=== PATIENT | male | born 1945 | race Caucasian/White ===

== ENCOUNTER 2018-06-21 19:53 | Emergency (ER) | payer OTHER ==
[~2018-06-21] VITALS: Ht 177.8 cm; Wt 117.9 kg
[~2018-06-21 19:53] MED LIST: ASPI81CH PO; ATOR20 PO; DIGO.25 PO; Hair, Skin & N1 EACH PO; LISI20 PO; MELA3 PO; METF500 PO; OMEP20ER PO; TAMS.4ER PO; WARF7.5 PO
[2018-06-21 20:32] LABS: BASOPHILS ABSOLUTE AUTO 0.11 K/mm3 (0.00-0.23); BASOPHILS PERCENT AUTO 1 % (0-2); EOSINOPHILS ABSOLUTE AUTO 0.02 K/mm3 (0.00-0.68); EOSINOPHILS PERCENT AUTO 0 % (0-6); Hematocrit 46.6 % (37.0-53.0); Hemoglobin 15.4 g/dL (13.5-17.5); IMMATURE GRAN ABSOLUTE AUTO 0.03 K/mm3 (0.00-0.10); IMMATURE GRAN PERCENT AUTO 0 % (0-1); LYMPHOCYTES ABSOLUTE AUTO 0.82 K/mm3 (0.84-5.20); LYMPHOCYTES PERCENT AUTO 9 % (21-46); MONOCYTES ABSOLUTE AUTO 0.93 K/mm3 (0.16-1.47); MONOCYTES PERCENT AUTO 11 % (4-13); Mean Corpuscular HGB 29.3 pg (26.0-34.0); Mean Corpuscular Volume 89 fL (80-100); Mean Platelet Volume 9.8 fL (9.1-12.4); NEUTROPHILS ABSOLUTE AUTO 6.82 K/mm3 (1.96-9.15); NEUTROPHILS PERCENT AUTO 78 % (41-73); Platelet Count 249 K/mm3 (150-400); RDW Standard Deviation 42.1 fL (35.1-46.3); Red Blood Cell Count 5.26 M/mm3 (4.30-5.90); White Blood Cell Count 8.73 K/mm3 (4.00-11.30)
[2018-06-21 20:57] LABS: Alanine Aminotransfer (ALT/SGP 38 U/L (12-78); Albumin, Blood 3.8 g/dL (3.4-5.0); Alk Phos 98 U/L (50-136); Anion Gap 6 mmol/L (6-16); Aspartate Aminotrans (AST/SGOT 22 U/L (12-37); Bilirubin, Total 0.4 mg/dL (0.1-1.0); Blood Urea Nitrogen 23 mg/dL (8-24); Bun/Creatinine Ratio 19.2 (12.0-20.0); CO2, Blood 24 mmol/L (21-32); Calcium, Blood 8.6 mg/dL (8.5-10.1); Chloride, Blood 104 mmol/L (98-108); Globulin, Blood 3.7 g/dL (2.2-4.0); Glomerular Filtration Rate >60 (60-); Glucose, Blood 199 mg/dL (70-99); Potassium, Blood 4.8 mmol/L (3.5-5.5); Sodium, Blood 134 mmol/L (136-145); Total Protein, Blood 7.5 g/dL (6.4-8.2)
[2018-06-21 21:13] LABS: Influenza A Positive (NEGATIVE); Influenza B Negative (NEGATIVE)
[2018-06-21 21:20] LABS: Digoxin (Lanoxin) 1.46 ug/mL (0.80-2.00)
[2018-06-21] MEDS ORDERED: Micro-K10 MEQ (21:26)
[2018-06-21] MEDS ORDERED: FURO20 PO (21:26)
[2018-06-21] MEDS ORDERED: STIOLTO RESPIMAT4 GM IH (21:26)
[2018-06-21] MEDS ORDERED: GLIM4 PO (21:26)
[2018-06-21 21:31] LABS: International Normalized Ratio 2.32; Prothrombin Time Results 22.8 Sec (9.7-11.5)
[2018-06-21] MEDS ORDERED: BENZ100A PO (23:10)
[2018-06-21] MEDS ORDERED: ONDA4ODT MM (23:10)
[2018-06-21 23:42] LABS: Source, Urine Clean Catch
[2018-06-21 23:46] LABS: Blood, Urine 4+ (Neg); Glucose Qualitative, Urine Neg (Neg); Ketones, Urine 1+ (Neg); Leukocyte Esterase, Urine 1+ (Neg); Nitrite, Urine Neg (Neg); Protein, Urine 2+ (Neg); Specific Gravity, Urine 1.025 (1.003-1.022); Urobilinogen, Urine 1+ (Normal)
[2018-06-21 23:51] LABS: Appearance, Urine Hazy (Clear); Bilirubin, Urine 1+ (Neg); Color, Urine Amber (P-Yellow)
[2018-06-21 23:54] LABS: Amorphous Light (0-Heavy); Bacteria Few /hpf; Granular Casts 0-2 /lpf (0); Mucus Mod (0-Heavy); Squamous Epithelial Cells Not Seen /hpf (Few); White Blood Cells, Urine 0-2 /hpf (0-5)
== END 2018-06-22 00:08 | disposition home or self-care (01) ==
LOC: ER 19:53
PROVIDERS: Emergency Medicine; Physician Assistant
DX: J10.1 Influenza due to other identified influenza virus with other respiratory manifestations (principal); J44.9 Chronic obstructive pulmonary disease, unspecified; Z91.040 Latex allergy status; Z79.899 Other long term (current) drug therapy; Z79.84 Long term (current) use of oral hypoglycemic drugs; Z79.01 Long term (current) use of anticoagulants; Z79.82 Long term (current) use of aspirin; F17.200 Nicotine dependence, unspecified, uncomplicated
CPT/HCPCS: 36415; 71046; 80053; 80162; 81001; 83605; 85025; 85610; 87086; 87804; 93005; 93010; 94640; 96374; 99284-25; J1885; J7030

== ENCOUNTER 2022-04-04 13:42 | Inpatient (IN) | payer OTHER ==
[~2022-04-04] VITALS: Ht 177.8 cm; Wt 136.2 kg
[~2022-04-04 13:42] MED LIST changes: +BENZ100A PO; +FURO20 PO; +GLIM4 PO; +LOKELMA10 GM PO; +MIRALAX17 GM PO; +Micro-K10 MEQ; +ONDA4ODT MM; +PANT40 PO; +STIOLTO RESPIMAT4 G1 INH
[2022-04-04 14:43] LABS: BASOPHILS ABSOLUTE AUTO 0.06 K/mm3 (0.00-0.23); BASOPHILS PERCENT AUTO 1 % (0-2); EOSINOPHILS ABSOLUTE AUTO 0.09 K/mm3 (0.00-0.68); EOSINOPHILS PERCENT AUTO 1 % (0-6); Hematocrit 24.1 % (37.0-53.0); Hemoglobin 6.9 g/dL (13.5-17.5); IMMATURE GRAN ABSOLUTE AUTO 0.02 K/mm3 (0.00-0.10); IMMATURE GRAN PERCENT AUTO 0 % (0-1); LYMPHOCYTES ABSOLUTE AUTO 1.03 K/mm3 (0.84-5.20); LYMPHOCYTES PERCENT AUTO 13 % (21-46); MONOCYTES ABSOLUTE AUTO 0.62 K/mm3 (0.16-1.47); MONOCYTES PERCENT AUTO 8 % (4-13); Mean Corpuscular HGB 23.1 pg (26.0-34.0); Mean Corpuscular HGB Conc 28.6 g/dL (31.5-36.5); Mean Corpuscular Volume 81 fL (80-100); NEUTROPHILS ABSOLUTE AUTO 6.01 K/mm3 (1.96-9.15); NEUTROPHILS PERCENT AUTO 77 % (41-73); Platelet Count 349 K/mm3 (150-400); RDW Coefficient Variation 14.9 % (11.7-14.2); RDW Standard Deviation 44.4 fL (35.1-46.3); Red Blood Cell Count 2.99 M/mm3 (4.30-5.90); White Blood Cell Count 7.83 K/mm3 (4.00-11.30)
[2022-04-04 14:57] LABS: Albumin, Blood 3.2 g/dL (3.4-5.0); Albumin/Globulin Ratio 0.9 (0.8-1.8); Bilirubin, Total 0.6 mg/dL (0.1-1.0); Bun/Creatinine Ratio 18.9 (12.0-20.0); Calcium, Blood 8.5 mg/dL (8.5-10.1); Creatinine, Blood 1.11 mg/dL (0.60-1.20); Globulin, Blood 3.5 g/dL (2.2-4.0); Potassium, Blood 4.2 mmol/L (3.5-5.5); Total Protein, Blood 6.7 g/dL (6.4-8.2)
--- NOTE | 2022-04-04 22:43 | NUR ---
PATIENT ARRIVED TO FLOOR FROM ED @2106. TRANSFERRED TO BED USING SLIDE SHEET. VSS. RR EVEN AND UNLABORED AT REST ON 2L NC, WHICH PATIENT REPORTS BASELINE. NO TELE ORDERS AT THIS TIME. ADMITTING DIAGNOSIS OF UPPER GI BLEED. CHEIF COMPLAINTS OF SOB AND WEAKNESS. PATIENT RECIEVED ONE UNIT OF PRB IN THE ED AND THEN WAS TRANSFERRED TO MEDICAL FLOOR WITH THE SECOND UNIT ON ICE. BLOOD BANK CONTACTED AND UNIT WAS FOUND TO BE . THE BLOOD WAS RETURNED BY KENDRA ELKINS. DR. ACEVEDO WAS NOTIFED OF THE SITUATION BY THIS RN. A FOLLOW-UP H&H WAS ORDERED. SECOND UNIT OF PRB HELD AT THIS TIME. PATIENT DENIES SYMPTOMS AT THIS TIME. NO ACUTE SIGNS OR EVENTS. BED LOW AND LOCKED. CALL LIGHT IN REACH. PATIENT INSTRUCTED TO CALL FOR ASSISTANCE. THIS RN WILL CONTINUE TO CLOSELY MONITOR.
[2022-04-04 23:12] LABS: Hemoglobin 7.5 g/dL (13.5-17.5)
--- NOTE | 2022-04-04 23:49 | NUR ---
H&H THIS RN SPOKE WITH DR. ACEVEDO REGARDING PATIENT'S H&H RESULTS. NO NEW ORDERS AT THIS TIME. WILL CONTINUE TO CLOSELY MONITOR.
--- NOTE | 2022-04-05 01:32 | NUR ---
PATIENT FOUND NAKED AND SITTING ON THE EDGE OF HIS BED. IV WAS DISCOVERED ON THE FLOOR NEXT TO HIM. PATIENT REPORTS WAKING UP IN A PANIC AND WAS APOLOGETIC. THERAPEUTIC COMMUNICATION PROVIDED. PATIENT APPEARS CALM THIS RN AND BACK ROLL LATHE OPERATOR, MADISON, ASSISTED HIM. THIS RN PLACED A 20 GAUGE IV TO THE RIGHT FOREARM. PATIENT TOLERATED IV PLACEMENT WELL. NO ACUTE CONCERNS. PATIENT IS CALM, COOPERATIVE, AND REPORTS FEELING BETTER. THIS RN WILL CONTINUE TO MONITOR.
--- NOTE | 2022-04-05 03:44 | NUR ---
DEVIL DOG SUMMARY A&OX4. PATIENT EFFECITVELY COMMUNICATES NEEDS. VSS. SPO2 >92% ON 2L NC, WHICH IS PATIENT'S REPORTED BASELINE. CARRILLO DRAINING TO GRAVITY. PATIENT PASSED LARGE BOWEL MOVEMENT THIS SHIFT. SEE OTHER NOTES FOR DETAILS REGARDING BLOOD TRANSFUSION. NO ACUTE EVENTS THIS SHIFT OTHER THAN AN EPISODE OF ANXIETY FOR WHICH PATIENT WAS APOLOGETIC. BED LOW AND LOCKED. CALL LIGHT WITHIN REACH. THIS RN WILL CONTINUE TO MONITOR. NPO MAINTAINED
[2022-04-05 05:50] LABS: BASOPHILS ABSOLUTE AUTO 0.01 K/mm3 (0.00-0.23); BASOPHILS PERCENT AUTO 0 % (0-2); EOSINOPHILS PERCENT AUTO 0 % (0-6); Hematocrit 23.7 % (37.0-53.0); Hemoglobin 7.1 g/dL (13.5-17.5); IMMATURE GRAN ABSOLUTE AUTO 0.03 K/mm3 (0.00-0.10); IMMATURE GRAN PERCENT AUTO 0 % (0-1); LYMPHOCYTES ABSOLUTE AUTO 0.43 K/mm3 (0.84-5.20); LYMPHOCYTES PERCENT AUTO 6 % (21-46); MONOCYTES PERCENT AUTO 1 % (4-13); Mean Corpuscular Volume 80 fL (80-100); Mean Platelet Volume 8.7 fL (9.1-12.4); NEUTROPHILS ABSOLUTE AUTO 6.87 K/mm3 (1.96-9.15); NEUTROPHILS PERCENT AUTO 92 % (41-73); NRBC ABSOLUTE 0.04 K/mm3 (0.00-0.02); NRBC Auto 0.5 /100 WBC (0.0-0.2); Platelet Count 292 K/mm3 (150-400); RDW Coefficient Variation 15.2 % (11.7-14.2); RDW Standard Deviation 44.9 fL (35.1-46.3); Red Blood Cell Count 2.96 M/mm3 (4.30-5.90); White Blood Cell Count 7.44 K/mm3 (4.00-11.30)
[2022-04-05 10:37] LABS: Albumin, Blood 3.1 g/dL (3.4-5.0); Albumin/Globulin Ratio 0.9 (0.8-1.8); Bilirubin, Total 0.8 mg/dL (0.1-1.0); Bun/Creatinine Ratio 20.7 (12.0-20.0); Creatinine, Blood 1.16 mg/dL (0.60-1.20); Globulin, Blood 3.6 g/dL (2.2-4.0); Magnesium, Blood 2.1 mg/dL (1.6-2.4); Phosphorus, Blood 4.4 mg/dL (2.5-4.9); Potassium, Blood 4.4 mmol/L (3.5-5.5); Total Protein, Blood 6.7 g/dL (6.4-8.2)
--- NOTE | 2022-04-05 16:45 | NUR ---
PATIENT LEFT THE ROOM AT THIS TIME TRANSPORTED VIA GURNEY TO DAY SURGERY BY MICHAEL GRAF.
--- NOTE | 2022-04-05 17:43 | NUR ---
04/05/22 [address] Basurto; see anesthesia records.
--- NOTE | 2022-04-05 18:01 | NUR ---
SHIFT SUMMARY: PATIENT A&OX4. SLIGHTLY RAMONA. PLEASANT AND COOPERATIVE c CARE. DENIES CP/CHEST DISCOMFORT. AT BEGINNING OF SHIFT PATIENT WAS ON O2 2L VIA NC c SPO2 OF 97%. AROUND 0900 O2 WAS TITRATED TO 1L VIA NC C SPO2 RANGES 93-96% T/O SHIFT. PATIENT RECEIVED 1 UNIT OF PRBC THIS SHIFT. VITAL SIGNS REVIEWED. PATIENT LEFT THE ROOM AT 1645 TO DAY SURGERY FOR EGD.
--- NOTE | 2022-04-05 19:13 | NUR ---
PATIENT BACK IN ROOM AT AROUND 1845 FROM EGD PROCEDURE. RECEIVED BEDSIDE REPORT FROM MICHAEL GRAF REGARDING THE PROCEDURE. POST-OP VITALS TAKEN. IV TO R FOREARM INFUSING NS AT 100 MLS/HR. REPORT GIVEN TO HITESH RICCI RN.
--- NOTE | 2022-04-06 03:25 | NUR ---
HAIR ASSISTANT SUMMARY VSS. SOME ORAL/THROAT DRYNESS AFTER RETUENING TO FLOOR FROM PM PROCEDURE, ORAL FLUIDS INTAKE ASSESSED, PASSED TEST. THEN VOICED IRRITATING "DRY COUGH". NOTIFIED AND TONO CARLISLE ORDERED/GIVEN. TIM EFFECTIVE. PT VOICED "THEY DIDNT FIND ANY THING" REFERRING TO PROCEDURE. DISCUSSED NEXT PROCEDURE - TO BE DONE LATER TODAY. NO REPORTED HEMOPTYSIS OR TARRY STOOLS OF THIS WRITING. REMAINS ON CLEAR LIQUIDS, WILL BE NPO LATER PRIOR TO PROCEDURE. HAS BEEN RESTING QUIETLY WITH FEW INTERRUPTIONS SINCE HS. CALL LIGHT IN REACH. RAILS UP X 3. WILL CONTINUE TO MONITOR
[2022-04-06 05:45] LABS: BASOPHILS ABSOLUTE AUTO 0.02 K/mm3 (0.00-0.23); BASOPHILS PERCENT AUTO 0 % (0-2); EOSINOPHILS ABSOLUTE AUTO 0.01 K/mm3 (0.00-0.68); EOSINOPHILS PERCENT AUTO 0 % (0-6); Hemoglobin 7.9 g/dL (13.5-17.5); IMMATURE GRAN ABSOLUTE AUTO 0.04 K/mm3 (0.00-0.10); IMMATURE GRAN PERCENT AUTO 1 % (0-1); LYMPHOCYTES ABSOLUTE AUTO 1.22 K/mm3 (0.84-5.20); LYMPHOCYTES PERCENT AUTO 14 % (21-46); MONOCYTES ABSOLUTE AUTO 0.74 K/mm3 (0.16-1.47); MONOCYTES PERCENT AUTO 8 % (4-13); Mean Corpuscular HGB 23.9 pg (26.0-34.0); Mean Corpuscular HGB Conc 29.3 g/dL (31.5-36.5); Mean Corpuscular Volume 82 fL (80-100); Mean Platelet Volume 8.9 fL (9.1-12.4); NEUTROPHILS ABSOLUTE AUTO 6.77 K/mm3 (1.96-9.15); NEUTROPHILS PERCENT AUTO 77 % (41-73); NRBC ABSOLUTE 0.04 K/mm3 (0.00-0.02); NRBC Auto 0.5 /100 WBC (0.0-0.2); Platelet Count 338 K/mm3 (150-400); RDW Coefficient Variation 15.7 % (11.7-14.2)
[2022-04-06 06:19] LABS: Albumin, Blood 3.2 g/dL (3.4-5.0); Anion Gap 7 mmol/L (6-16); Blood Urea Nitrogen 29 mg/dL (8-24); Bun/Creatinine Ratio 22.1 (12.0-20.0); CO2, Blood 31 mmol/L (21-32); Chloride, Blood 101 mmol/L (98-108); Creatinine, Blood 1.31 mg/dL (0.60-1.20); Glomerular Filtration Rate 56 (60-); Glucose, Blood 112 mg/dL (70-99); Magnesium, Blood 2.2 mg/dL (1.6-2.4); Phosphorus, Blood 3.5 mg/dL (2.5-4.9); Potassium, Blood 4.3 mmol/L (3.5-5.5); Sodium, Blood 139 mmol/L (136-145)
--- NOTE | 2022-04-06 17:15 | NUR ---
PATIENT LEFT THE ROOM AT THIS TIME TRANSPORTED VIA GURNEY BY DAY SURGERY [facility] TO DAY SURGERY FOR COLONOSCOPY.
--- NOTE | 2022-04-06 17:20 | NUR ---
04/06/22 [address] ANDERSON IN ENDO01; SEE ANESTHESIA RECORDS.
--- NOTE | 2022-04-06 19:19 | NUR ---
SHIFT SUMMARY: PATIENT A&OX4. SLIGHTLY UNGA. CALM, PLEASANT AND COOPERATIVE C CARE. USES CALL LIGHT APPROPRIATELY. AND ABLE TO ADVOCATE FOR HIS NEEDS. PATIENT HAD BOWEL PREP THIS AM. PATIENT HAS BEEN NPO. PATIENT ON TELE, AFIB IN THE HIGH 50'S cN PAUSES OF 2.47 SECONDS PER WORM PACKERSHAVON PATRICIA. PATIENT DENIES CP/CHEST PRESSURE T/O THE DAY. PATIENT ON O2, 1L VIA NC c SPO2 ABOVE 95%. DENIES SOB, N/V. PATIENT LEFT THE ROOM AT 1715 TO DAY SURGERY FOR COLONOSCOPY. VITAL SIGNS REVIEWED. PATIENT BACK IN ROOM AT AROUND 1910 FROM COLONOSCOPY. RECEIVED BEDSIDE REPORT FROM MICHAEL GRAF FROM DAY SURGERY. PATIENT WAS TRANSFERRED TO BED VIA SLIDER SHEET c 4 NURSING STAFF ASSISTANCE. POST-OP VITALS TAKEN. REPORT GIVEN TO KEIRY RN, ESTELA FAY.
--- NOTE | 2022-04-07 05:02 | NUR ---
SHIFT SUMMARY; PT IS AXO X4 THIS SHIFT. PT IS NOTTAWASEPPI POTAWATOMI, AND BECOMES EASILY FRUSTRATED WHEN HE ISNT ABLE TO HEAR YOU. PT COMPLAINS OF FEELING HOT THIS AM, BUT IS NOT FEBRILE. FAN GIVEN TO THE PT TO HELP COOL HIM OFF. PT RESTED IN BED T/O THE SHIFT. CARRILLO IS PATENT AND DRAINING TO GRAVITY. CATH CARE DONE BY MACHO SNOW. PT IS ON 2L NC TO MAINTAIN O2 SATS. THE PT DENIES ANY PAIN THIS SHIFT. TELE IS IN PLACE, A-FIB, 50/'S. THE PT DENIES ANY SOB, CHEST PAIN OR PRESSURE THIS SHIFT. CURRENTLY THE PT IS RESTING IN BED WITH THE BED IN THE LOWEST POSITION AND THE CALL LIGHT AT BEDSIDE.
[2022-04-07 05:51] LABS: BASOPHILS ABSOLUTE AUTO 0.08 K/mm3 (0.00-0.23); BASOPHILS PERCENT AUTO 1 % (0-2); EOSINOPHILS ABSOLUTE AUTO 0.14 K/mm3 (0.00-0.68); EOSINOPHILS PERCENT AUTO 2 % (0-6); Hematocrit 26.8 % (37.0-53.0); Hemoglobin 7.8 g/dL (13.5-17.5); IMMATURE GRAN ABSOLUTE AUTO 0.03 K/mm3 (0.00-0.10); IMMATURE GRAN PERCENT AUTO 0 % (0-1); LYMPHOCYTES ABSOLUTE AUTO 1.38 K/mm3 (0.84-5.20); LYMPHOCYTES PERCENT AUTO 15 % (21-46); MONOCYTES ABSOLUTE AUTO 0.82 K/mm3 (0.16-1.47); MONOCYTES PERCENT AUTO 9 % (4-13); Mean Corpuscular HGB 24.1 pg (26.0-34.0); Mean Corpuscular HGB Conc 29.1 g/dL (31.5-36.5); Mean Corpuscular Volume 83 fL (80-100); Mean Platelet Volume 8.9 fL (9.1-12.4); NEUTROPHILS ABSOLUTE AUTO 6.88 K/mm3 (1.96-9.15); NEUTROPHILS PERCENT AUTO 74 % (41-73); NRBC ABSOLUTE 0.02 K/mm3 (0.00-0.02); NRBC Auto 0.2 /100 WBC (0.0-0.2); Platelet Count 305 K/mm3 (150-400); RDW Standard Deviation 48.4 fL (35.1-46.3); Red Blood Cell Count 3.23 M/mm3 (4.30-5.90); White Blood Cell Count 9.33 K/mm3 (4.00-11.30)
[2022-04-07 06:22] LABS: Albumin, Blood 3.1 g/dL (3.4-5.0); Anion Gap 4 mmol/L (6-16); Blood Urea Nitrogen 27 mg/dL (8-24); Bun/Creatinine Ratio 21.8 (12.0-20.0); CO2, Blood 33 mmol/L (21-32); Calcium, Blood 8.7 mg/dL (8.5-10.1); Chloride, Blood 103 mmol/L (98-108); Creatinine, Blood 1.24 mg/dL (0.60-1.20); Glomerular Filtration Rate 60 (60-); Glucose, Blood 98 mg/dL (70-99); Phosphorus, Blood 3.5 mg/dL (2.5-4.9); Sodium, Blood 140 mmol/L (136-145)
--- NOTE | 2022-04-07 06:41 | NUR ---
NOTIFIED OF 7.8 HGB THIS AM, TO PUT IN TRANSFUSION ORDERS.
[2022-04-07 08:27] LABS: Hematocrit 27.1 % (37.0-53.0); Hemoglobin 7.9 g/dL (13.5-17.5)
--- NOTE | 2022-04-07 16:46 | NUR ---
PT IS AOX4 AND COOPERATIVE OF CARE. PT DOING WELL TODAY. HGB 7.[address] WILKINSON DID NOT WANT TRANSFUSION TODAY. WILL CONTINUE TO MONITOR. PT DENIED ANY PAIN AND CALL LIGHT IS WITHIN REACH WILL CONTINUE TO MONITOR.
--- NOTE | 2022-04-08 05:17 | NUR ---
SHIFT SUMMARY; NO ACUTE CHANGES OVERNIGHT. THE PT RESTED IN BED T/O THE NIGHT. STABLE O2 SATS ON 2L NC. THE PT DENIES ANY PAIN OR SOB T/O THE SHIFT. THE PTS L EYE IS RED AND THE PT STATES HE FEELS LIKE SOMETHING IS IN IT. THE PTS CARRILLO CATHETER IS IN PATENT AND DRAINING TO GRAVITY. CURRENTLY THE PT IS RESTING IN BED WITH THE BED IN THE LOWEST POSITION AND THE CALL LIGHT AT BEDSIDE.
[2022-04-08 10:17] LABS: Hematocrit 27.4 % (37.0-53.0)
[2022-04-08] MEDS ORDERED: OMEP20ER PO (11:35)
== END 2022-04-08 14:32 | disposition home or self-care (01) | DRG 813 ==
LOC: ER 13:42 → MEDS 17:38
PROVIDERS: Internal Medicine; Internal Medicine Gastroenterology; Student in an Organized Health Care Education/Training Program; ADMIT Family Medicine
PROC: 0DBK8ZX Excision of Ascending Colon, Via Natural or Artificial Opening Endoscopic, Diagnostic (ICD-10-PCS; 2022-04-05)
PROC: 0DBL8ZX Excision of Transverse Colon, Via Natural or Artificial Opening Endoscopic, Diagnostic (ICD-10-PCS; 2022-04-05)
PROC: 30233N1 Transfusion of Nonautologous Red Blood Cells into Peripheral Vein, Percutaneous Approach (ICD-10-PCS; principal; 2022-04-05 17:00)
DX: D68.32 Hemorrhagic disorder due to extrinsic circulating anticoagulants (principal); K92.2 Gastrointestinal hemorrhage, unspecified; D62 Acute posthemorrhagic anemia; I13.0 Hypertensive heart and chronic kidney disease with heart failure and stage 1 through stage 4 chronic kidney disease, or unspecified chronic kidney disease; I50.32 Chronic diastolic (congestive) heart failure; D50.9 Iron deficiency anemia, unspecified; D63.1 Anemia in chronic kidney disease; I48.91 Unspecified atrial fibrillation; E11.22 Type 2 diabetes mellitus with diabetic chronic kidney disease; N18.9 Chronic kidney disease, unspecified; H91.90 Unspecified hearing loss, unspecified ear; E66.9 Obesity, unspecified; Z90.49 Acquired absence of other specified parts of digestive tract; Z68.31 Body mass index [BMI] 31.0-31.9, adult; Z98.890 Other specified postprocedural states; Z91.040 Latex allergy status; Z79.01 Long term (current) use of anticoagulants; Z79.82 Long term (current) use of aspirin; Z79.84 Long term (current) use of oral hypoglycemic drugs; Z79.899 Other long term (current) drug therapy
CPT/HCPCS: 36415; 36430; 71046; 80053; 80069; 82272; 82947; 83735; 83880; 84100; 84484; 85014; 85018; 85025; 86850; 86900; 86901; 86923; 88305; 93005; 93010; 94761; 96374; 97116; 97162; 97165; 97530; 99285-25; A9270; C9113; J1940; J2001; J2704; J7030; J7120; P9016

== ENCOUNTER 2022-05-08 14:15 | Inpatient (IN) | payer OTHER ==
[~2022-05-08] VITALS: Ht 180.3 cm; Wt 129.7 kg
[2022-05-08] MEDS ORDERED: ELIQUIS5 M3 PO (14:33)
[2022-05-08] MEDS ORDERED: POTA10T PO (14:34)
[2022-05-08] MEDS ORDERED: TORSE20 PO (14:34)
[2022-05-08] MEDS ORDERED: METFORMIN HCL500 M2 PO (14:35)
[2022-05-08] MEDS ORDERED: PANTOPRAZOLE SO40 M2 PO (14:35)
[2022-05-08] MEDS ORDERED: DIGOX250 MCG PO (14:36)
[2022-05-08] MEDS ORDERED: JANTOVEN7.5 M2 PO (14:36)
[2022-05-08] MEDS ORDERED: ACTOS30 MG PO (14:37)
[2022-05-08] MEDS ORDERED: ATORVASTATIN CA20 MG PO (14:37)
[2022-05-08 14:50] LABS: BASOPHILS ABSOLUTE AUTO 0.09 K/mm3 (0.00-0.23); BASOPHILS PERCENT AUTO 1 % (0-2); EOSINOPHILS ABSOLUTE AUTO 0.07 K/mm3 (0.00-0.68); EOSINOPHILS PERCENT AUTO 1 % (0-6); Hematocrit 21.4 % (37.0-53.0); IMMATURE GRAN ABSOLUTE AUTO 0.04 K/mm3 (0.00-0.10); IMMATURE GRAN PERCENT AUTO 0 % (0-1); LYMPHOCYTES ABSOLUTE AUTO 1.16 K/mm3 (0.84-5.20); LYMPHOCYTES PERCENT AUTO 13 % (21-46); MONOCYTES ABSOLUTE AUTO 0.94 K/mm3 (0.16-1.47); MONOCYTES PERCENT AUTO 11 % (4-13); Mean Corpuscular HGB 21.4 pg (26.0-34.0); Mean Corpuscular HGB Conc 27.6 g/dL (31.5-36.5); Mean Corpuscular Volume 78 fL (80-100); Mean Platelet Volume 8.9 fL (9.1-12.4); NEUTROPHILS ABSOLUTE AUTO 6.59 K/mm3 (1.96-9.15); NEUTROPHILS PERCENT AUTO 74 % (41-73); NRBC ABSOLUTE 0.03 K/mm3 (0.00-0.02); NRBC Auto 0.3 /100 WBC (0.0-0.2); Platelet Count 444 K/mm3 (150-400); RDW Coefficient Variation 16.5 % (11.7-14.2); RDW Standard Deviation 46.7 fL (35.1-46.3); Red Blood Cell Count 2.76 M/mm3 (4.30-5.90); White Blood Cell Count 8.89 K/mm3 (4.00-11.30)
[2022-05-08 15:01] LABS: Hemoglobin 5.9 g/dL (13.5-17.5)
[2022-05-08 15:02] LABS: Albumin, Blood 2.9 g/dL (3.4-5.0); Albumin/Globulin Ratio 0.7 (0.8-1.8); Bilirubin, Total 0.6 mg/dL (0.1-1.0); Bun/Creatinine Ratio 20.2 (12.0-20.0); Calcium, Blood 8.4 mg/dL (8.5-10.1); Creatinine, Blood 1.04 mg/dL (0.60-1.20); Globulin, Blood 3.9 g/dL (2.2-4.0); Potassium, Blood 4.3 mmol/L (3.5-5.5); Total Protein, Blood 6.8 g/dL (6.4-8.2)
[2022-05-08 15:34] LABS: Percent Saturation 3.2 % (20.0-50.0)
[2022-05-08 16:00] LABS: Source, Urine Straight Cath
[2022-05-08 16:19] LABS: Bilirubin, Urine Neg (Neg); Blood, Urine Neg (Neg); Glucose Qualitative, Urine Neg (Neg); Ketones, Urine Neg (Neg); Leukocyte Esterase, Urine Neg (Neg); Nitrite, Urine Neg (Neg); Protein, Urine 1+ (Neg); Urobilinogen, Urine NORM (Normal)
[2022-05-08 16:31] LABS: Appearance, Urine Clear (Clear); Color, Urine Yellow (P-Yellow)
[2022-05-09 05:01] LABS: BASOPHILS ABSOLUTE AUTO 0.11 K/mm3 (0.00-0.23); BASOPHILS PERCENT AUTO 1 % (0-2); EOSINOPHILS ABSOLUTE AUTO 0.15 K/mm3 (0.00-0.68); EOSINOPHILS PERCENT AUTO 2 % (0-6); Hematocrit 23.8 % (37.0-53.0); Hemoglobin 7.1 g/dL (13.5-17.5); IMMATURE GRAN ABSOLUTE AUTO 0.02 K/mm3 (0.00-0.10); IMMATURE GRAN PERCENT AUTO 0 % (0-1); LYMPHOCYTES ABSOLUTE AUTO 1.07 K/mm3 (0.84-5.20); LYMPHOCYTES PERCENT AUTO 13 % (21-46); MONOCYTES PERCENT AUTO 12 % (4-13); Mean Corpuscular HGB 23.2 pg (26.0-34.0); Mean Corpuscular HGB Conc 29.8 g/dL (31.5-36.5); Mean Corpuscular Volume 78 fL (80-100); Mean Platelet Volume 8.8 fL (9.1-12.4); NEUTROPHILS ABSOLUTE AUTO 6.21 K/mm3 (1.96-9.15); NEUTROPHILS PERCENT AUTO 73 % (41-73); NRBC ABSOLUTE 0.02 K/mm3 (0.00-0.02); NRBC Auto 0.2 /100 WBC (0.0-0.2); Platelet Count 392 K/mm3 (150-400); RDW Coefficient Variation 16.8 % (11.7-14.2); RDW Standard Deviation 47.7 fL (35.1-46.3); Red Blood Cell Count 3.06 M/mm3 (4.30-5.90); White Blood Cell Count 8.56 K/mm3 (4.00-11.30)
[2022-05-09 05:20] LABS: Albumin, Blood 2.7 g/dL (3.4-5.0); Anion Gap 5 mmol/L (6-16); Blood Urea Nitrogen 19 mg/dL (8-24); Bun/Creatinine Ratio 20.5 (12.0-20.0); CO2, Blood 30 mmol/L (21-32); Calcium, Blood 8.2 mg/dL (8.5-10.1); Chloride, Blood 100 mmol/L (98-108); Creatinine, Blood 0.93 mg/dL (0.60-1.20); Glomerular Filtration Rate 85 (60-); Glucose, Blood 104 mg/dL (70-99); Phosphorus, Blood 3.2 mg/dL (2.5-4.9); Potassium, Blood 4.1 mmol/L (3.5-5.5); Sodium, Blood 135 mmol/L (136-145)
--- NOTE | 2022-05-09 06:48 | NUR ---
TRANSFERRED TO UNIT AT 1900 DURING SHIFT REPORT. FIRST OF TWO UNITS OF BLOOD WAS RUNNING. NO REACTION SUSPECTED AFTER 2 UNITS OF BLOOD DELIVERED. AT TIMES BP IS DIFFICULT TO OBTAIN DUE TO PATIENT ARM MOVEMENTS BUT VSS. MANUAL BP OBTAINED TO CONFIRM. SKIN CHECK COMPLETED WITH TIARA RICHMOND RN AND PICTURES PLACED IN CHART. AOX3-4, PT HAS MOMENTS OF CONFUSION DURING THE NIGHT. ABLE TO MAKE NEEDS KNOWN, PLEASANT AND COOPERATIVE, NO EVENTS OVER NIGHT.
--- NOTE | 2022-05-09 18:53 | NUR ---
SUMMARY- PT A/O X4, VERY EYAK- PLAN TO DIURESIS AND JASPAL H/H. HAS O2 AT 2L NC. LUNGS DIM LOWER HALF, FAINT CX BASES. LE EDEMA. SEVERE SCROTAL EDEMA. PT TOLERATING FOOD AND FLUID. LORENA PUT OUT 2950 THIS 12 HR SHIFT. NO BM TODAY. ABLE TO GET UP TO CHAIR 2 SBA FOR DINNER AND SAT ON BSC, TRYING TO HAVE BM.
--- NOTE | 2022-05-10 05:54 | NUR ---
UNSTEADY GAIT, X1 ASSIST FOR TRANSFERS TO BSC AND REPOSITIONING IN BED. BM ON 05/09. CARRILLO PATENT WITH ADEQUATE OUTPUT. MILD CONFUSION AT NIGHT, REDIRECTABLE AND PLEASANT. TOLERATING REGULAR DIET. AT TIMES FORGETS TO CALL TO MAKE NEEDS KNOWN. NO SIGNIFICANT CHANGES NOTED. 2L O2 NC. NO EVENTS DURING SHIFT.
[2022-05-10 07:34] LABS: BASOPHILS ABSOLUTE AUTO 0.12 K/mm3 (0.00-0.23); BASOPHILS PERCENT AUTO 1 % (0-2); EOSINOPHILS ABSOLUTE AUTO 0.23 K/mm3 (0.00-0.68); EOSINOPHILS PERCENT AUTO 2 % (0-6); Hematocrit 24.3 % (37.0-53.0); Hemoglobin 6.9 g/dL (13.5-17.5); IMMATURE GRAN ABSOLUTE AUTO 0.03 K/mm3 (0.00-0.10); IMMATURE GRAN PERCENT AUTO 0 % (0-1); LYMPHOCYTES ABSOLUTE AUTO 1.26 K/mm3 (0.84-5.20); LYMPHOCYTES PERCENT AUTO 13 % (21-46); MONOCYTES ABSOLUTE AUTO 1.11 K/mm3 (0.16-1.47); MONOCYTES PERCENT AUTO 11 % (4-13); Mean Corpuscular HGB 22.7 pg (26.0-34.0); Mean Corpuscular HGB Conc 28.4 g/dL (31.5-36.5); Mean Corpuscular Volume 80 fL (80-100); Mean Platelet Volume 8.7 fL (9.1-12.4); NEUTROPHILS ABSOLUTE AUTO 7.28 K/mm3 (1.96-9.15); NEUTROPHILS PERCENT AUTO 73 % (41-73); Platelet Count 362 K/mm3 (150-400); RDW Coefficient Variation 17.4 % (11.7-14.2); Red Blood Cell Count 3.04 M/mm3 (4.30-5.90); White Blood Cell Count 10.03 K/mm3 (4.00-11.30)
[2022-05-10 07:50] LABS: Bun/Creatinine Ratio 18.3 (12.0-20.0); Creatinine, Blood 1.2 mg/dL (0.60-1.20); Potassium, Blood 4.3 mmol/L (3.5-5.5)
[2022-05-10 15:42] LABS: BASOPHILS ABSOLUTE AUTO 0.08 K/mm3 (0.00-0.23); BASOPHILS PERCENT AUTO 1 % (0-2); EOSINOPHILS ABSOLUTE AUTO 0.19 K/mm3 (0.00-0.68); EOSINOPHILS PERCENT AUTO 2 % (0-6); Hematocrit 26.2 % (37.0-53.0); Hemoglobin 7.7 g/dL (13.5-17.5); IMMATURE GRAN ABSOLUTE AUTO 0.04 K/mm3 (0.00-0.10); IMMATURE GRAN PERCENT AUTO 1 % (0-1); LYMPHOCYTES ABSOLUTE AUTO 1.12 K/mm3 (0.84-5.20); LYMPHOCYTES PERCENT AUTO 13 % (21-46); MONOCYTES ABSOLUTE AUTO 0.99 K/mm3 (0.16-1.47); MONOCYTES PERCENT AUTO 11 % (4-13); Mean Corpuscular HGB 23.9 pg (26.0-34.0); Mean Corpuscular HGB Conc 29.4 g/dL (31.5-36.5); Mean Corpuscular Volume 81 fL (80-100); Mean Platelet Volume 8.5 fL (9.1-12.4); NEUTROPHILS ABSOLUTE AUTO 6.25 K/mm3 (1.96-9.15); NEUTROPHILS PERCENT AUTO 72 % (41-73); NRBC ABSOLUTE 0.02 K/mm3 (0.00-0.02); NRBC Auto 0.2 /100 WBC (0.0-0.2); Platelet Count 326 K/mm3 (150-400); RDW Coefficient Variation 17.6 % (11.7-14.2); RDW Standard Deviation 51.7 fL (35.1-46.3); Red Blood Cell Count 3.22 M/mm3 (4.30-5.90); White Blood Cell Count 8.67 K/mm3 (4.00-11.30)
--- NOTE | 2022-05-10 18:53 | NUR ---
LUIS FERNANDOARY- PT A/O X3, OCC FORGETFUL. MORE CONFUSION THIS AM WHILE WAKING UP. THOUGHT IT WAS STILL DAY TIME. PT UP TO CHAIR FOR MEALS. H/H CAME DOWN AGAIN, 1 UNIT PRBC'S ORDERED AND ADMINISTERED. FOLLOW UP CBC SHOWED IMPROVEMENT. VSS. HAD 2 BM'S TODAY. SOFT LIGHT BROWN, NO VISIBLE BLOOD. LASIX 20MG IV, CARRILLO FOR ACCURATE I/O. GOOD URINE OUTPUT.
[2022-05-11 07:25] LABS: BASOPHILS ABSOLUTE AUTO 0.11 K/mm3 (0.00-0.23); BASOPHILS PERCENT AUTO 1 % (0-2); EOSINOPHILS ABSOLUTE AUTO 0.29 K/mm3 (0.00-0.68); EOSINOPHILS PERCENT AUTO 3 % (0-6); Hemoglobin 7.5 g/dL (13.5-17.5); IMMATURE GRAN ABSOLUTE AUTO 0.02 K/mm3 (0.00-0.10); IMMATURE GRAN PERCENT AUTO 0 % (0-1); LYMPHOCYTES ABSOLUTE AUTO 1.22 K/mm3 (0.84-5.20); LYMPHOCYTES PERCENT AUTO 14 % (21-46); MONOCYTES ABSOLUTE AUTO 1.07 K/mm3 (0.16-1.47); MONOCYTES PERCENT AUTO 12 % (4-13); Mean Corpuscular HGB 23.6 pg (26.0-34.0); Mean Corpuscular HGB Conc 28.8 g/dL (31.5-36.5); Mean Corpuscular Volume 82 fL (80-100); Mean Platelet Volume 8.8 fL (9.1-12.4); NEUTROPHILS ABSOLUTE AUTO 5.91 K/mm3 (1.96-9.15); NEUTROPHILS PERCENT AUTO 69 % (41-73); Platelet Count 312 K/mm3 (150-400); RDW Coefficient Variation 18.3 % (11.7-14.2); RDW Standard Deviation 53.8 fL (35.1-46.3); Red Blood Cell Count 3.18 M/mm3 (4.30-5.90); White Blood Cell Count 8.62 K/mm3 (4.00-11.30)
--- NOTE | 2022-05-11 07:37 | NUR ---
NO BM LAST NIGHT BUT PER REPORT BM'S HAVE BEEN NORMAL RECENTLY, NO SIGNS OF BLEEDING. X1 ASSIST TO TRANSFER TO BSC. VSS ON 2L O2 NC. AOX4 WITH OCCASIONAL MILD CONFUSION. NO SIGNIFICANT CHANGES NOTED. MONITORING HGB.
[2022-05-11 07:43] LABS: Bun/Creatinine Ratio 20.5 (12.0-20.0); Calcium, Blood 8.3 mg/dL (8.5-10.1); Creatinine, Blood 1.12 mg/dL (0.60-1.20)
--- NOTE | 2022-05-11 10:22 | NUR ---
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 HE IS APPROPRIATE BUT SEEMS A LITTLE FORGETFUL. [place]. AREAS BLE HAVE SCABBED AND DRIED, NO DRESSINGS ON THEM. LEFT ELBOW RED AND SWOLLEN WITH SMALL SCABBED WOUND, MEPILEX PLACED. UP TO CHAIR FOR BREAKFAST. DENIES PAIN. ON 2L NC WHICH HE SAID IS CONTINUOUS AT HOME. ABDOMINAL SWELLING, SCROTAL SWELLING AND BLE SWELLING. NEUROPATHY TO BLE. BED LOW, CALL LIGHT IN REACH.
--- NOTE | 2022-05-11 19:54 | NUR ---
SHIFT SUMMARY NO GREAT CHANGES SINCE EARLIER RN NOTE. MR RYAN WORKED WITH PT TODAY AND HAS BEEN 1 PERSON STAND BY ASSIST IN ROOM WITH GAIT BELT AND WALKER. NO PAIN, NO SOB ON 2L NC. BED LOW, CALL LIGHT IN REACH, UP TO CHAIR.
--- NOTE | 2022-05-12 04:17 | NUR ---
PATIENT HAS BEEN AWAKE FOR MOST OF THE NIGHT, ORIENTED X3, NOT TO DATE AND TIME. INCREASED CONFUSION THROUGHOUT THE NIGHT, LOOKS TO BE SUNDOWNING AT TIMES. PATIENTS HAS BEEN INAPPROPRIATE WITH STAFF, ASKING THEM TO GET IN HIS BED, TO "TALK ABOUT SEX" WITH HIM. PATIENT HAS BEEN UP TO SIDE OF BED, SOMETIMES 2X PER HOUR. HE STATES HE FEELS FUSSY TONIGHT. FC DRAINING TO GRAVITY. 1X SMEAR BM. NO NOTABLE CHANGES TO EDEMA. WILL CONT TO MONITOR.
[2022-05-12 08:15] LABS: BASOPHILS ABSOLUTE AUTO 0.09 K/mm3 (0.00-0.23); BASOPHILS PERCENT AUTO 1 % (0-2); EOSINOPHILS ABSOLUTE AUTO 0.26 K/mm3 (0.00-0.68); EOSINOPHILS PERCENT AUTO 4 % (0-6); Hematocrit 25.1 % (37.0-53.0); Hemoglobin 7.4 g/dL (13.5-17.5); IMMATURE GRAN ABSOLUTE AUTO 0.05 K/mm3 (0.00-0.10); IMMATURE GRAN PERCENT AUTO 1 % (0-1); LYMPHOCYTES ABSOLUTE AUTO 1.25 K/mm3 (0.84-5.20); LYMPHOCYTES PERCENT AUTO 18 % (21-46); MONOCYTES ABSOLUTE AUTO 0.72 K/mm3 (0.16-1.47); MONOCYTES PERCENT AUTO 10 % (4-13); Mean Corpuscular HGB 23.9 pg (26.0-34.0); Mean Corpuscular HGB Conc 29.5 g/dL (31.5-36.5); Mean Corpuscular Volume 81 fL (80-100); Mean Platelet Volume 8.7 fL (9.1-12.4); NEUTROPHILS ABSOLUTE AUTO 4.68 K/mm3 (1.96-9.15); NEUTROPHILS PERCENT AUTO 66 % (41-73); Platelet Count 272 K/mm3 (150-400); RDW Coefficient Variation 18.6 % (11.7-14.2); Red Blood Cell Count 3.09 M/mm3 (4.30-5.90); White Blood Cell Count 7.05 K/mm3 (4.00-11.30)
[2022-05-12 16:46] LABS: Bun/Creatinine Ratio 22.8 (12.0-20.0); Calcium, Blood 8.4 mg/dL (8.5-10.1); Creatinine, Blood 1.01 mg/dL (0.60-1.20); Potassium, Blood 4.3 mmol/L (3.5-5.5)
--- NOTE | 2022-05-12 18:15 | NUR ---
SHIFT SUMMARY PT UP FOR SHOWER THIS MORNING. 1 PERSON ASSIST USING FWW TO BATHROOM. OCCASIONALLY CLAPPING HIS HANDS AND TAPPING ON RAILS OR TABLE. WHEN ASKED IF HE IS OK HE SAYS HE JUST NEEDS TO TAP ON OBJECTS OR HIS HANDS AT TIMES IN A FIDGETY MANNER. [place]. DENIES PAIN OR RESP DISTRESS.
[2022-05-13 04:42] LABS: BASOPHILS ABSOLUTE AUTO 0.11 K/mm3 (0.00-0.23); BASOPHILS PERCENT AUTO 2 % (0-2); EOSINOPHILS ABSOLUTE AUTO 0.32 K/mm3 (0.00-0.68); EOSINOPHILS PERCENT AUTO 4 % (0-6); Hematocrit 25.6 % (37.0-53.0); Hemoglobin 7.4 g/dL (13.5-17.5); IMMATURE GRAN ABSOLUTE AUTO 0.01 K/mm3 (0.00-0.10); IMMATURE GRAN PERCENT AUTO 0 % (0-1); LYMPHOCYTES ABSOLUTE AUTO 1.25 K/mm3 (0.84-5.20); LYMPHOCYTES PERCENT AUTO 17 % (21-46); MONOCYTES ABSOLUTE AUTO 0.89 K/mm3 (0.16-1.47); MONOCYTES PERCENT AUTO 12 % (4-13); Mean Corpuscular HGB 23.7 pg (26.0-34.0); Mean Corpuscular HGB Conc 28.9 g/dL (31.5-36.5); Mean Corpuscular Volume 82 fL (80-100); Mean Platelet Volume 8.6 fL (9.1-12.4); NEUTROPHILS ABSOLUTE AUTO 4.78 K/mm3 (1.96-9.15); NEUTROPHILS PERCENT AUTO 65 % (41-73); Platelet Count 257 K/mm3 (150-400); RDW Coefficient Variation 18.9 % (11.7-14.2); RDW Standard Deviation 56.1 fL (35.1-46.3); Red Blood Cell Count 3.12 M/mm3 (4.30-5.90); White Blood Cell Count 7.36 K/mm3 (4.00-11.30)
--- NOTE | 2022-05-13 04:48 | NUR ---
SHIFT NOTE/ BEHAVIOR ALERT AND ORIENTED X3, NOT TO DATE/TIME. SEEMS TO BE SUNDOWNING, AGGITATED, CONFUSED AT TIMES, AGGRESIVE LANGUAGE AND BEHAVIOR, INAPPROPRIATE WITH STAFF. ONE TIME ZYPREXA IM USED WITHOUT RESULTS. PATIENT CONTINUED TO GET OUT OF BED EVERY 20 MINUTES, DANGER TO SELF DUE TO FALL RISK, LINES, CONFUSION. NEW ORDER PLACED FOR PO SEROQUEL AND REOFFERED HS MELATONIN, PATIENT WAS AGREABLE. FINALLY WENT TO SLEEP AT 0430. FC DRAINING TO GRAVITY. 3400 OUTPUT COLLECTED, EDEMA IMPROVING. NO OTHER ISSUES TO REPORT.
[2022-05-13 05:12] LABS: Bun/Creatinine Ratio 24.8 (12.0-20.0); Calcium, Blood 8.5 mg/dL (8.5-10.1); Creatinine, Blood 1.05 mg/dL (0.60-1.20); Potassium, Blood 4.1 mmol/L (3.5-5.5)
--- NOTE | 2022-05-13 06:03 | NUR ---
RECEIVED PT IN THE SCU AT 0545.HE WAS SENT TO THIS UNIT FOR BEHAVIORAL ISSUES. HE IS QUITE GRUFF IN THE WAY HE SPEAKS TO STAFF AND HE IS UNCOOPERATIVE. HE REFUSES TO WEAR HIS NASAL CANULA AND PULLED THE TUBING OFF OF THE WALL. HE HAS BEEN YELLING AND CURSING WELL. MULTIPLE ATTEMPTS TO REDIRECT. WILL CONTINUE TO MONITOR. PT IS NOW BEING PLACED ON CAMERA FOR SAFETY ISSUES.
--- NOTE | 2022-05-13 16:34 | NUR ---
SHIFT SUMMARY PT AxOx3-4 WITH INTERM CONFUSION. PT HAS BEEN PLEASANT AND COOPERATIVE WITH CARE THIS SHIFT. PT HAS BEEN IMPULSIVE WITH GETTING OUT OF BED A COUPLE TIMES TODAY. BED ALARM ON AND CAMERA ON FOR SAFETY. SON AND DAUGHTER IN LAW IN FOR VISIT, UPDATED ON PLAN OF CARE. CURRENT PLAN IS FOR PATIENT TO CONTINUE DIURESING, THEN RETURN HOME WITH HOME HEALTH. PT DENIES PAIN. CARRILLO DRAINING PATENT TO GRAVITY. VITALS REVIEWED. PT IS CURRENTLY SLEEPING IN BED. CALL LIGHT IN LAP.
[2022-05-14 04:49] LABS: BASOPHILS PERCENT AUTO 2 % (0-2); EOSINOPHILS PERCENT AUTO 5 % (0-6); Hematocrit 26.7 % (37.0-53.0); Hemoglobin 7.5 g/dL (13.5-17.5); IMMATURE GRAN ABSOLUTE AUTO 0.01 K/mm3 (0.00-0.10); IMMATURE GRAN PERCENT AUTO 0 % (0-1); LYMPHOCYTES ABSOLUTE AUTO 1.38 K/mm3 (0.84-5.20); LYMPHOCYTES PERCENT AUTO 21 % (21-46); MONOCYTES ABSOLUTE AUTO 0.78 K/mm3 (0.16-1.47); MONOCYTES PERCENT AUTO 12 % (4-13); Mean Corpuscular HGB 23.4 pg (26.0-34.0); Mean Corpuscular HGB Conc 28.1 g/dL (31.5-36.5); Mean Corpuscular Volume 83 fL (80-100); Mean Platelet Volume 8.8 fL (9.1-12.4); NEUTROPHILS ABSOLUTE AUTO 3.93 K/mm3 (1.96-9.15); NEUTROPHILS PERCENT AUTO 61 % (41-73); Platelet Count 230 K/mm3 (150-400); RDW Standard Deviation 57.5 fL (35.1-46.3)
[2022-05-14 05:10] LABS: Bun/Creatinine Ratio 24.8 (12.0-20.0); Calcium, Blood 8.6 mg/dL (8.5-10.1); Creatinine, Blood 1.13 mg/dL (0.60-1.20); Potassium, Blood 4.4 mmol/L (3.5-5.5)
--- NOTE | 2022-05-14 06:30 | NUR ---
CITY CARRIER SUMMARY: A&Ox2-3; SELF AND PERSON. USES CALL LIGHT OR CALLS INTO HALLWAY AND IS ABLE TO COMMUNICATE NEEDS. FREQUENTLY HEARD CURSING AT THINGS IN HIS ROOM BUT PLEASANT WITH STAFF. CARRILLO PATENT AND DRAINING TO GRAVITY. SLEPT MAJORITY OF FIRST PART OF SHIFT AND WAS AWAKE OFF AND ON T/O REMAINDER. BED ALARM AND CAMERA SURVEILLANCE D/T BEING IMPULSIVE. IV LEFT FA PATENT. LABS DRAWN THIS AM; NO CRITICAL RESULTS REPORTED. WILL REPORT TO ONCOMING RN.
--- NOTE | 2022-05-14 15:24 | NUR ---
note pt resting quetly. He awakenes, sits up for meals then lays down to nap. Cooperative with care. laughing and interacting. Good stories. COntinue pOC.
[2022-05-15 04:55] LABS: BASOPHILS ABSOLUTE AUTO 0.11 K/mm3 (0.00-0.23); BASOPHILS PERCENT AUTO 2 % (0-2); EOSINOPHILS ABSOLUTE AUTO 0.27 K/mm3 (0.00-0.68); EOSINOPHILS PERCENT AUTO 4 % (0-6); Hematocrit 25.8 % (37.0-53.0); Hemoglobin 7.2 g/dL (13.5-17.5); IMMATURE GRAN ABSOLUTE AUTO 0.01 K/mm3 (0.00-0.10); IMMATURE GRAN PERCENT AUTO 0 % (0-1); LYMPHOCYTES ABSOLUTE AUTO 1.29 K/mm3 (0.84-5.20); LYMPHOCYTES PERCENT AUTO 20 % (21-46); MONOCYTES ABSOLUTE AUTO 0.67 K/mm3 (0.16-1.47); MONOCYTES PERCENT AUTO 10 % (4-13); Mean Corpuscular HGB 23.5 pg (26.0-34.0); Mean Corpuscular HGB Conc 27.9 g/dL (31.5-36.5); Mean Corpuscular Volume 84 fL (80-100); Mean Platelet Volume 8.8 fL (9.1-12.4); NEUTROPHILS ABSOLUTE AUTO 4.11 K/mm3 (1.96-9.15); NEUTROPHILS PERCENT AUTO 64 % (41-73); Platelet Count 198 K/mm3 (150-400); RDW Coefficient Variation 19.4 % (11.7-14.2); RDW Standard Deviation 58.4 fL (35.1-46.3); Red Blood Cell Count 3.07 M/mm3 (4.30-5.90); White Blood Cell Count 6.46 K/mm3 (4.00-11.30)
[2022-05-15 05:13] LABS: Bun/Creatinine Ratio 28.8 (12.0-20.0); Calcium, Blood 8.5 mg/dL (8.5-10.1); Creatinine, Blood 1.11 mg/dL (0.60-1.20); Potassium, Blood 4.4 mmol/L (3.5-5.5)
--- NOTE | 2022-05-15 05:20 | NUR ---
SHIFT SUMMARY: PT IS ALERT AND ORIENTED WITH INTERMITTENT CONFUSION. PT IS CALM AND COOPERATIVE WITH CARE. PT CALLS APPROPRIATELY. CHRONIC CARRILLO PATENT AND DRAINING YELLOW URINE. PT DENIES PAIN, NAUSEA, VOMITING, AND SOB. PT SLEPT OFF AND ON THROUGHOUT THE NIGHT. NO ACUTE CHANGES OR COMPLICATIONS THIS SHIFT. WILL CONTINUE TO MONITOR.
[2022-05-16 04:20] LABS: BASOPHILS PERCENT AUTO 1 % (0-2); EOSINOPHILS ABSOLUTE AUTO 0.29 K/mm3 (0.00-0.68); EOSINOPHILS PERCENT AUTO 4 % (0-6); Hematocrit 25.5 % (37.0-53.0); Hemoglobin 7.2 g/dL (13.5-17.5); IMMATURE GRAN ABSOLUTE AUTO 0.03 K/mm3 (0.00-0.10); IMMATURE GRAN PERCENT AUTO 0 % (0-1); LYMPHOCYTES ABSOLUTE AUTO 1.47 K/mm3 (0.84-5.20); LYMPHOCYTES PERCENT AUTO 19 % (21-46); MONOCYTES ABSOLUTE AUTO 0.71 K/mm3 (0.16-1.47); MONOCYTES PERCENT AUTO 9 % (4-13); Mean Corpuscular HGB 23.5 pg (26.0-34.0); Mean Corpuscular HGB Conc 28.2 g/dL (31.5-36.5); Mean Corpuscular Volume 83 fL (80-100); NEUTROPHILS ABSOLUTE AUTO 5.02 K/mm3 (1.96-9.15); NEUTROPHILS PERCENT AUTO 66 % (41-73); Platelet Count 193 K/mm3 (150-400); RDW Standard Deviation 57.2 fL (35.1-46.3); Red Blood Cell Count 3.07 M/mm3 (4.30-5.90); White Blood Cell Count 7.62 K/mm3 (4.00-11.30)
[2022-05-16 04:36] LABS: Bun/Creatinine Ratio 29.2 (12.0-20.0); Calcium, Blood 8.6 mg/dL (8.5-10.1); Creatinine, Blood 1.06 mg/dL (0.60-1.20); Potassium, Blood 4.5 mmol/L (3.5-5.5)
--- NOTE | 2022-05-16 06:08 | NUR ---
VSS ON 2L NC, PLEASANT AND COOPERATIVE. CALLS APPROPRIATELY. TOLERATES PILLS WHOLE WITH WATER. HGB IS TRENDING DOWN AGAIN. OTHERWISE NO EVENTS DURING SHIFT, NO SIGNIFICANT CHANGES.
--- NOTE | 2022-05-16 16:19 | NUR ---
SHIFT SUMMARY PATIENT A&Ox4, COOPERATIVE WITH CARE, MYRTLE. LORENA DC'D AT 1045. 200ML OUTPUT WITHIN 4HRS OF REMOVAL. PT WEAK, ABLE TO AMBULATED WITH WALKER AND 1PA. CONTINUES TO HAVE 2+ PITTING EDEMA NOTED TO BLE, ABD, SCROTUM, AND LUE. DENIES PAIN, CP, HEADACHE, OR SOB. OCCASIONAL CONGESTED COUGH, NONPRODUCTIVE. REPORTS NEUROPATHY TO TOES. NO ACUTE CHANGES DURING THIS SHIFT. CT OF ABD/PELVIS ORDERED. PATIENT CURRENTLY RESTING IN BED WITH CALL LIGHT IN REACH.
[2022-05-17 05:08] LABS: BASOPHILS PERCENT AUTO 1 % (0-2); EOSINOPHILS ABSOLUTE AUTO 0.35 K/mm3 (0.00-0.68); EOSINOPHILS PERCENT AUTO 5 % (0-6); Hemoglobin 7.2 g/dL (13.5-17.5); IMMATURE GRAN ABSOLUTE AUTO 0.01 K/mm3 (0.00-0.10); IMMATURE GRAN PERCENT AUTO 0 % (0-1); LYMPHOCYTES ABSOLUTE AUTO 1.41 K/mm3 (0.84-5.20); LYMPHOCYTES PERCENT AUTO 19 % (21-46); MONOCYTES ABSOLUTE AUTO 0.73 K/mm3 (0.16-1.47); MONOCYTES PERCENT AUTO 10 % (4-13); Mean Corpuscular HGB 23.8 pg (26.0-34.0); Mean Corpuscular HGB Conc 28.8 g/dL (31.5-36.5); Mean Corpuscular Volume 83 fL (80-100); Mean Platelet Volume 8.9 fL (9.1-12.4); NEUTROPHILS ABSOLUTE AUTO 4.67 K/mm3 (1.96-9.15); NEUTROPHILS PERCENT AUTO 64 % (41-73); Platelet Count 190 K/mm3 (150-400); RDW Standard Deviation 56.4 fL (35.1-46.3); Red Blood Cell Count 3.03 M/mm3 (4.30-5.90); White Blood Cell Count 7.27 K/mm3 (4.00-11.30)
[2022-05-17 05:43] LABS: Albumin, Blood 2.7 g/dL (3.4-5.0); Anion Gap 2 mmol/L (6-16); Blood Urea Nitrogen 32 mg/dL (8-24); Bun/Creatinine Ratio 31.1 (12.0-20.0); CO2, Blood 37 mmol/L (21-32); Calcium, Blood 8.6 mg/dL (8.5-10.1); Chloride, Blood 101 mmol/L (98-108); Creatinine, Blood 1.03 mg/dL (0.60-1.20); Glomerular Filtration Rate 75 (60-); Glucose, Blood 148 mg/dL (70-99); Phosphorus, Blood 3.3 mg/dL (2.5-4.9); Potassium, Blood 4.4 mmol/L (3.5-5.5); Sodium, Blood 140 mmol/L (136-145)
--- NOTE | 2022-05-17 05:59 | NUR ---
AOX4 BUT REQUIRED REORIENTING AROUND 0100. COOPERATIVE WITH CARES, VSS, TOLERATES PO INTAKE. ADEQUATE OUTPUT VOIDED. CONT/INCONT SINCE CARRILLO REMOVED ON 05/16. X1 ASSIST TO TRANSFER. 2L O2 NC. HGB IS TRENDING DOWN SINCE LAST PRBC UNIT. UNEVENTFUL NIGHT.
[2022-05-17] MEDS ORDERED: PANT40 PO (11:02)
[2022-05-17] MEDS ORDERED: BUME1 PO (11:04)
[2022-05-17] MEDS ORDERED: ATOR10 PO (11:06)
[2022-05-17] MEDS ORDERED: MELATONIN5 M1 PO (11:07)
[2022-05-17] MEDS ORDERED: QUET25 PO (11:08)
--- NOTE | 2022-05-17 14:14 | NUR ---
DISCHARGE NO ACUTE EVENTS DURING THIS SHIFT. PT A&OX4, COOPERATIVE, MES[place] GRANDE. CONTINUES TO HAVE 2+ PITTING EDEMA IN BILATERAL EXTREMITIES, ABDOMEN, AND EDEMA IN SCROTUM. DISCUSSED DISCHARGE PACKET, REVIEWED CARDIAC DIET. PT AND FAMILY MEMBER DENIED ANY QUESTIONS OR CONCERNS. PT TRANSFEREED FROM BED TO WHEELCHAIR EITHOUT ANY PROBLEMS AND DISCHARGED AT 1400.
== END 2022-05-17 14:01 | disposition home health service (06) | DRG 811 ==
LOC: ER 14:15 → MEDS 17:36
PROVIDERS: Internal Medicine; Student in an Organized Health Care Education/Training Program; ADMIT Family Medicine
PROC: 30233N1 Transfusion of Nonautologous Red Blood Cells into Peripheral Vein, Percutaneous Approach (ICD-10-PCS; principal; 2022-05-08)
DX: D62 Acute posthemorrhagic anemia (principal); I50.33 Acute on chronic diastolic (congestive) heart failure; J96.11 Chronic respiratory failure with hypoxia; K92.2 Gastrointestinal hemorrhage, unspecified; I13.0 Hypertensive heart and chronic kidney disease with heart failure and stage 1 through stage 4 chronic kidney disease, or unspecified chronic kidney disease; N18.9 Chronic kidney disease, unspecified; I48.91 Unspecified atrial fibrillation; N50.89 Other specified disorders of the male genital organs; D50.9 Iron deficiency anemia, unspecified; E11.22 Type 2 diabetes mellitus with diabetic chronic kidney disease; I45.10 Unspecified right bundle-branch block; E66.9 Obesity, unspecified; Z91.040 Latex allergy status; Z79.899 Other long term (current) drug therapy; Z79.01 Long term (current) use of anticoagulants; Z79.84 Long term (current) use of oral hypoglycemic drugs; Z79.02 Long term (current) use of antithrombotics/antiplatelets; Z90.49 Acquired absence of other specified parts of digestive tract; Z98.890 Other specified postprocedural states; Z68.39 Body mass index [BMI] 39.0-39.9, adult
CPT/HCPCS: 36415; 36430; 51702; 74177; 76870; 80048; 80053; 80069; 82728; 83540; 83550; 83735; 83880; 85025; 86850; 86900; 86901; 86923; 94760; 97110; 97116; 97162; 97165; 97530; 97535; 99285-25; A9270; C9113; J1644; J1940; J7030; J7050; P9016; Q9967

== ENCOUNTER → 2022-06-15 | Outpatient (CLI) | payer OTHER ==
[~2022-06-15] MED LIST changes: +ACTOS30 MG PO; +ATOR10 PO; +ATORVASTATIN CA20 MG PO; +BUME1 PO; +DIGOX250 MCG PO; +ELIQUIS5 M3 PO; +JANTOVEN7.5 M2 PO; +MELATONIN5 M1 PO; +METFORMIN HCL500 M2 PO; +PANTOPRAZOLE SO40 M2 PO; +POTA10T PO; +QUET25 PO; +TORSE20 PO
[2022-06-15 14:43] LABS: RBC Count, Synovial Fluid 90000 /mm3 (0-0); WBC Count, Synovial Fluid 1051 /mm3 (0-180)
[2022-06-15 14:45] LABS: Body Fluid Crystals NEG (NEGATIVE)
[2022-06-15 15:32] LABS: Color, Synovial Fluid Red (None-P Yel); Crystals, Synovial Fluid Not Seen (Not Seen); Eos, Synovial Fluid 1 % (0-2); Lymphs, Synovial Fluid 8 % (0-15); Monocytes/Macrophages, Synovia 28 % (0-65); Neutrophils, Synovial Fluid 63 % (0-24)
[2022-06-15 15:33] LABS: Appearance, Synovial Fluid Cloudy (Clear)
[2022-06-15 16:17] LABS: Creatinine, Body Fluid 0.56 mg/dL; Glucose, Body Fluid 47 mg/dL; Protein, Body Fluid 5.1 g/dL
== END | disposition home or self-care (01) ==
LOC: LAB SHORT 14:05 → LAB 14:05
PROVIDERS: Chiropractor
DX: M70.22 Olecranon bursitis, left elbow (principal)
CPT/HCPCS: 82570; 82945; 84157; 89051; 89060

== ENCOUNTER 2022-07-08 14:39 | Emergency (ER) | payer OTHER ==
[~2022-07-08] VITALS: Ht 180.3 cm; Wt 136.1 kg
[2022-07-08 15:06] LABS: BASOPHILS ABSOLUTE AUTO 0.08 K/mm3 (0.00-0.23); BASOPHILS PERCENT AUTO 1 % (0-2); EOSINOPHILS ABSOLUTE AUTO 0.16 K/mm3 (0.00-0.68); EOSINOPHILS PERCENT AUTO 2 % (0-6); Hematocrit 25.9 % (37.0-53.0); Hemoglobin 7.4 g/dL (13.5-17.5); IMMATURE GRAN ABSOLUTE AUTO 0.01 K/mm3 (0.00-0.10); IMMATURE GRAN PERCENT AUTO 0 % (0-1); LYMPHOCYTES ABSOLUTE AUTO 1.17 K/mm3 (0.84-5.20); LYMPHOCYTES PERCENT AUTO 16 % (21-46); MONOCYTES ABSOLUTE AUTO 0.74 K/mm3 (0.16-1.47); MONOCYTES PERCENT AUTO 10 % (4-13); Mean Corpuscular HGB 22.9 pg (26.0-34.0); Mean Corpuscular HGB Conc 28.6 g/dL (31.5-36.5); Mean Corpuscular Volume 80 fL (80-100); Mean Platelet Volume 9.3 fL (9.1-12.4); NEUTROPHILS ABSOLUTE AUTO 5.08 K/mm3 (1.96-9.15); NEUTROPHILS PERCENT AUTO 70 % (41-73); Platelet Count 256 K/mm3 (150-400); RDW Coefficient Variation 17.9 % (11.7-14.2); RDW Standard Deviation 52.3 fL (35.1-46.3); Red Blood Cell Count 3.23 M/mm3 (4.30-5.90); White Blood Cell Count 7.24 K/mm3 (4.00-11.30)
[2022-07-08 16:08] LABS: Source, Urine Clean Catch
[2022-07-08 16:08] LABS: Albumin, Blood 3.3 g/dL (3.4-5.0); Albumin/Globulin Ratio 0.8 (0.8-1.8); Bilirubin, Total 0.7 mg/dL (0.1-1.0); Bun/Creatinine Ratio 18.3 (12.0-20.0); Calcium, Blood 9.1 mg/dL (8.5-10.1); Creatinine, Blood 0.98 mg/dL (0.60-1.20); Globulin, Blood 4.2 g/dL (2.2-4.0); Potassium, Blood 3.5 mmol/L (3.5-5.5); Total Protein, Blood 7.5 g/dL (6.4-8.2)
[2022-07-08 16:12] LABS: Appearance, Urine Clear (Clear); Bilirubin, Urine Neg (Neg); Blood, Urine Neg (Neg); Color, Urine Yellow (P-Yellow); Glucose Qualitative, Urine Neg (Neg); Ketones, Urine Neg (Neg); Leukocyte Esterase, Urine Neg (Neg); Nitrite, Urine Neg (Neg); Protein, Urine 1+ (Neg); Urobilinogen, Urine NORM (Normal); pH, Urine 6.5 (5.0-8.0)
[2022-07-08 17:52] VITALS: BP 148/110
== END 2022-07-08 17:47 | disposition home or self-care (01) ==
LOC: ER 14:39
PROVIDERS: Physician Assistant
DX: N50.89 Other specified disorders of the male genital organs (principal); I50.9 Heart failure, unspecified; Z87.891 Personal history of nicotine dependence; Z79.899 Other long term (current) drug therapy; Z91.040 Latex allergy status
CPT/HCPCS: 36415; 51702; 71046; 80053; 83880; 84484; 85025; 93005; 93010; 96374-59; 99285-25; J1940

== ENCOUNTER 2022-07-28 11:53 | Observation (INO) | payer OTHER ==
[~2022-07-28] VITALS: Ht 180.3 cm; Wt 132.2 kg
[2022-07-28 12:40] LABS: BASOPHILS PERCENT AUTO 1 % (0-2); EOSINOPHILS ABSOLUTE AUTO 0.15 K/mm3 (0.00-0.68); EOSINOPHILS PERCENT AUTO 2 % (0-6); Hematocrit 24.5 % (37.0-53.0); Hemoglobin 6.9 g/dL (13.5-17.5); IMMATURE GRAN ABSOLUTE AUTO 0.02 K/mm3 (0.00-0.10); IMMATURE GRAN PERCENT AUTO 0 % (0-1); LYMPHOCYTES ABSOLUTE AUTO 1.24 K/mm3 (0.84-5.20); LYMPHOCYTES PERCENT AUTO 15 % (21-46); MONOCYTES PERCENT AUTO 11 % (4-13); Mean Corpuscular HGB 22.1 pg (26.0-34.0); Mean Corpuscular HGB Conc 28.2 g/dL (31.5-36.5); Mean Corpuscular Volume 79 fL (80-100); Mean Platelet Volume 9.4 fL (9.1-12.4); NEUTROPHILS ABSOLUTE AUTO 5.76 K/mm3 (1.96-9.15); NEUTROPHILS PERCENT AUTO 71 % (41-73); Platelet Count 380 K/mm3 (150-400); RDW Coefficient Variation 16.8 % (11.7-14.2); RDW Standard Deviation 47.5 fL (35.1-46.3); Red Blood Cell Count 3.12 M/mm3 (4.30-5.90); White Blood Cell Count 8.17 K/mm3 (4.00-11.30)
[2022-07-28 13:11] LABS: Albumin, Blood 3.3 g/dL (3.4-5.0); Albumin/Globulin Ratio 0.8 (0.8-1.8); Bilirubin, Total 0.5 mg/dL (0.1-1.0); Bun/Creatinine Ratio 20.2 (12.0-20.0); Calcium, Blood 8.8 mg/dL (8.5-10.1); Creatinine, Blood 1.04 mg/dL (0.60-1.20); Globulin, Blood 4.2 g/dL (2.2-4.0); Potassium, Blood 3.5 mmol/L (3.5-5.5); Total Protein, Blood 7.5 g/dL (6.4-8.2)
[2022-07-28 18:24] VITALS: BP 121/68
--- NOTE | 2022-07-28 18:51 | NUR ---
Pt brought to room 337 via gurney from ed report obtained, pt infusing prbc, vs stable, afebrile, pt pulled over to bed, he is a/ox4, very nikolai, pleasant and cooperative with care, follows commands well, denies pain, lungs are clear dim in bases, reps even and unlabored, no cough noted, currently on 2 liters o2 via n/c, he is home 02 dependant, hrr, distant, 2+ edema noted to b/l le, up to abd, ppp+1, cap refill <3sec, vs stable, afebrile, piv x2, to r and l fa's, sites are clear and patent, btx4, abd large soft nontender, voids via ugalde cath draining light yellow clear urine, skin c/w/d, maew, general weakness, luciano, oriented to room layout and call system, call light in reach.
[2022-07-28 20:05] VITALS: BP 112/57
[2022-07-28 21:12] VITALS: BP 114/64
[2022-07-28 22:07] VITALS: BP 108/70
--- NOTE | 2022-07-29 03:14 | NUR ---
COMPLETED FIRST UNIT PRBC (STARTED IN ED). 2ND UNIT PRBC COMPLETED AT APPROX 0045. PATIENT TOLERATED WELL. VSS.
[2022-07-29 05:27] LABS: BASOPHILS ABSOLUTE AUTO 0.09 K/mm3 (0.00-0.23); BASOPHILS PERCENT AUTO 1 % (0-2); EOSINOPHILS ABSOLUTE AUTO 0.21 K/mm3 (0.00-0.68); EOSINOPHILS PERCENT AUTO 3 % (0-6); Hematocrit 26.2 % (37.0-53.0); Hemoglobin 7.6 g/dL (13.5-17.5); IMMATURE GRAN ABSOLUTE AUTO 0.02 K/mm3 (0.00-0.10); IMMATURE GRAN PERCENT AUTO 0 % (0-1); LYMPHOCYTES ABSOLUTE AUTO 1.22 K/mm3 (0.84-5.20); LYMPHOCYTES PERCENT AUTO 17 % (21-46); MONOCYTES ABSOLUTE AUTO 0.81 K/mm3 (0.16-1.47); MONOCYTES PERCENT AUTO 11 % (4-13); Mean Corpuscular HGB 23.2 pg (26.0-34.0); Mean Corpuscular Volume 80 fL (80-100); Mean Platelet Volume 9.3 fL (9.1-12.4); NEUTROPHILS ABSOLUTE AUTO 4.84 K/mm3 (1.96-9.15); NEUTROPHILS PERCENT AUTO 67 % (41-73); Platelet Count 319 K/mm3 (150-400); RDW Coefficient Variation 17.1 % (11.7-14.2); RDW Standard Deviation 50.1 fL (35.1-46.3); Red Blood Cell Count 3.27 M/mm3 (4.30-5.90); White Blood Cell Count 7.19 K/mm3 (4.00-11.30)
[2022-07-29 06:00] VITALS: BP 105/52
[2022-07-29 06:19] LABS: Albumin, Blood 2.9 g/dL (3.4-5.0); Albumin/Globulin Ratio 0.7 (0.8-1.8); Bilirubin, Total 0.8 mg/dL (0.1-1.0); Bun/Creatinine Ratio 18.8 (12.0-20.0); Calcium, Blood 8.5 mg/dL (8.5-10.1); Creatinine, Blood 1.17 mg/dL (0.60-1.20); Globulin, Blood 4.3 g/dL (2.2-4.0); Magnesium, Blood 1.7 mg/dL (1.6-2.4); Phosphorus, Blood 3.5 mg/dL (2.5-4.9); Potassium, Blood 3.8 mmol/L (3.5-5.5); Total Protein, Blood 7.2 g/dL (6.4-8.2)
[2022-07-29 07:32] VITALS: BP 110/56
[2022-07-29] MEDS ORDERED: TORSE20 PO (09:07)
[2022-07-29] MEDS ORDERED: ALBU90OI INH (09:07)
--- NOTE | 2022-07-29 10:23 | NUR ---
DISCHARGE SUMMARY DISCHARGE, FOLLOWUP, AND MEDICATION INSTRUCTIONS GIVEN TO PT. PT VOICED COMPLETE UNDERSTANDING AND HAS NO QUESTIONS AT THIS TIME. IV'S REMOVED WITH CATHETER TIP INTACT. PT AWAITING ARRIAL OF SON. WILL CONTINUE TO MONITOR UNTIL PT LEAVES UNIT. CALL WHITESIDE WITHIN REACH.
== END 2022-07-29 12:10 | disposition home or self-care (01) ==
LOC: ER 11:53 → MEDS 16:17 → ENPENDDIS 07-29 08:45 → MEDS 07-29 12:10
PROVIDERS: Internal Medicine; Physician Assistant; ADMIT Family Medicine
DX: K92.2 Gastrointestinal hemorrhage, unspecified (principal); D64.9 Anemia, unspecified; N18.9 Chronic kidney disease, unspecified; I50.30 Unspecified diastolic (congestive) heart failure; R09.02 Hypoxemia; I48.91 Unspecified atrial fibrillation; E66.01 Morbid (severe) obesity due to excess calories; Z68.41 Body mass index [BMI] 40.0-44.9, adult; Z87.891 Personal history of nicotine dependence; Z79.899 Other long term (current) drug therapy
CPT/HCPCS: 36415; 36430; 71046; 80053; 83735; 83880; 84100; 84484; 85025; 86850; 86900; 86901; 86923; 93005; 93010; 93306; 94760; 96374; 96375; 96376; 99285-25; A9270; G0378; J1940; J7030; P9016

== ENCOUNTER → 2022-08-18 | Outpatient (CLI) | payer OTHER ==
[~2022-08-18] MED LIST changes: +ALBU90OI INH
[2022-08-18 19:15] LABS: Percent Saturation 8.3 % (20.0-50.0)
== END | disposition home or self-care (01) ==
LOC: LAB SHORT 18:33 → LAB 18:33
PROVIDERS: Internal Medicine Hematology & Oncology
DX: D51.8 Other vitamin B12 deficiency anemias (principal); D50.9 Iron deficiency anemia, unspecified
CPT/HCPCS: 82607; 82728; 82746; 83540; 83550

== ENCOUNTER → 2022-10-24 | Outpatient (CLI) | payer OTHER ==
[2022-10-24 20:04] LABS: Bun/Creatinine Ratio 21.9 (12.0-20.0); Creatinine, Blood 1.14 mg/dL (0.60-1.20); Percent Saturation 5.1 % (20.0-50.0); Potassium, Blood 3.9 mmol/L (3.5-5.5)
== END | disposition home or self-care (01) ==
LOC: LAB SHORT 17:46 → LAB 17:46
PROVIDERS: Internal Medicine Hematology & Oncology
DX: D50.0 Iron deficiency anemia secondary to blood loss (chronic) (principal)
CPT/HCPCS: 80048; 82728; 83540; 83550

== ENCOUNTER 2022-12-03 10:29 | Emergency (ER) | payer OTHER ==
[~2022-12-03] VITALS: Ht 180.3 cm; Wt 122.5 kg
[2022-12-03 11:04] LABS: BASOPHILS ABSOLUTE AUTO 0.05 K/mm3 (0.00-0.23); BASOPHILS PERCENT AUTO 1 % (0-2); EOSINOPHILS ABSOLUTE AUTO 0.18 K/mm3 (0.00-0.68); EOSINOPHILS PERCENT AUTO 3 % (0-6); Hematocrit 25.1 % (37.0-53.0); Hemoglobin 7.3 g/dL (13.5-17.5); IMMATURE GRAN ABSOLUTE AUTO 0.03 K/mm3 (0.00-0.10); IMMATURE GRAN PERCENT AUTO 1 % (0-1); LYMPHOCYTES ABSOLUTE AUTO 1.16 K/mm3 (0.84-5.20); LYMPHOCYTES PERCENT AUTO 19 % (21-46); MONOCYTES ABSOLUTE AUTO 0.62 K/mm3 (0.16-1.47); MONOCYTES PERCENT AUTO 10 % (4-13); Mean Corpuscular HGB Conc 29.1 g/dL (31.5-36.5); Mean Corpuscular Volume 79 fL (80-100); Mean Platelet Volume 9.3 fL (9.1-12.4); NEUTROPHILS ABSOLUTE AUTO 3.98 K/mm3 (1.96-9.15); NEUTROPHILS PERCENT AUTO 66 % (41-73); Platelet Count 339 K/mm3 (150-400); RDW Coefficient Variation 15.9 % (11.7-14.2); RDW Standard Deviation 46.2 fL (35.1-46.3); Red Blood Cell Count 3.17 M/mm3 (4.30-5.90); White Blood Cell Count 6.02 K/mm3 (4.00-11.30)
[2022-12-03] MEDS ORDERED: TRELEGY ELLIPT1 EAC1 IH (11:21)
[2022-12-03 11:36] LABS: Bun/Creatinine Ratio 19.5 (12.0-20.0); Calcium, Blood 8.7 mg/dL (8.5-10.1); Creatinine, Blood 1.33 mg/dL (0.60-1.20); Potassium, Blood 3.7 mmol/L (3.5-5.5)
[2022-12-03 12:45] VITALS: BP 102/58
== END 2022-12-03 13:00 | disposition home or self-care (01) ==
LOC: ER 10:29
PROVIDERS: Emergency Medicine
DX: I50.30 Unspecified diastolic (congestive) heart failure (principal); D50.0 Iron deficiency anemia secondary to blood loss (chronic); Z91.040 Latex allergy status; Z79.899 Other long term (current) drug therapy; Z87.891 Personal history of nicotine dependence
CPT/HCPCS: 71045; 80048; 83880; 85025; 86850; 86900; 86901; 93005; 93010; 96374; 99282-25; J1940

== ENCOUNTER → 2023-02-04 | Outpatient (CLI) | payer OTHER ==
[~2023-02-04] MED LIST changes: +TRELEGY ELLIPT1 EAC1 IH
[2023-02-04 17:52] LABS: Appearance, Urine Hazy (Clear); Bilirubin, Urine Neg (Neg); Blood, Urine Neg (Neg); Glucose Qualitative, Urine Neg (Neg); Ketones, Urine Neg (Neg); Leukocyte Esterase, Urine 3+ (Neg); Nitrite, Urine Neg (Neg); Protein, Urine Neg (Neg); Specific Gravity, Urine 1.015 (1.003-1.022); Urobilinogen, Urine NORM (Normal)
[2023-02-04 18:09] LABS: Color, Urine Pale Yellow (P-Yellow)
[2023-02-04 18:11] LABS: Red Blood Cells, Urine 0-2 /hpf (0-2); White Blood Cells, Urine 50-100 /hpf (0-5)
[2023-02-04 18:12] LABS: Bacteria Many /hpf; Hyaline Casts 0-2 /lpf (0-2); Mucus Light (0-Heavy); Squamous Epithelial Cells Rare /hpf (Few)
== END ==
LOC: LAB SHORT 17:44 → LAB 17:44
PROVIDERS: Family Medicine
DX: Z46.6 Encounter for fitting and adjustment of urinary device (principal); N39.0 Urinary tract infection, site not specified
CPT/HCPCS: 81001; 87077; 87086; 87186

== ENCOUNTER 2023-02-12 12:49 | Emergency (ER) | payer OTHER ==
[~2023-02-12] VITALS: Ht 165.1 cm; Wt 72.6 kg
[2023-02-12 13:12] LABS: BASOPHILS PERCENT AUTO 1 % (0-2); EOSINOPHILS ABSOLUTE AUTO 0.16 K/mm3 (0.00-0.68); EOSINOPHILS PERCENT AUTO 2 % (0-6); Hemoglobin 8.8 g/dL (13.5-17.5); IMMATURE GRAN ABSOLUTE AUTO 0.06 K/mm3 (0.00-0.10); IMMATURE GRAN PERCENT AUTO 1 % (0-1); LYMPHOCYTES ABSOLUTE AUTO 1.49 K/mm3 (0.84-5.20); LYMPHOCYTES PERCENT AUTO 15 % (21-46); MONOCYTES ABSOLUTE AUTO 0.73 K/mm3 (0.16-1.47); MONOCYTES PERCENT AUTO 7 % (4-13); Mean Corpuscular HGB 28.2 pg (26.0-34.0); Mean Corpuscular HGB Conc 32.6 g/dL (31.5-36.5); Mean Corpuscular Volume 87 fL (80-100); Mean Platelet Volume 8.8 fL (9.1-12.4); NEUTROPHILS ABSOLUTE AUTO 7.52 K/mm3 (1.96-9.15); NEUTROPHILS PERCENT AUTO 75 % (41-73); NRBC ABSOLUTE 0.02 K/mm3 (0.00-0.02); NRBC Auto 0.2 /100 WBC (0.0-0.2); Platelet Count 348 K/mm3 (150-400); RDW Coefficient Variation 20.1 % (11.7-14.2); RDW Standard Deviation 61.1 fL (35.1-46.3); Red Blood Cell Count 3.12 M/mm3 (4.30-5.90); White Blood Cell Count 10.06 K/mm3 (4.00-11.30)
[2023-02-12 13:30] LABS: Albumin, Blood 3.5 g/dL (3.4-5.0); Albumin/Globulin Ratio 0.8 (0.8-1.8); Bilirubin, Total 0.3 mg/dL (0.1-1.0); Bun/Creatinine Ratio 34.8 (12.0-20.0); Calcium, Blood 7.8 mg/dL (8.5-10.1); Creatinine, Blood 2.47 mg/dL (0.60-1.20); Globulin, Blood 4.2 g/dL (2.2-4.0); Potassium, Blood 2.8 mmol/L (3.5-5.5); Total Protein, Blood 7.7 g/dL (6.4-8.2)
[2023-02-12 17:25] LABS: Calcium, Ionized (POC) 0.88 mmol/L (1.10-1.46); Chloride (POC) 90 mmol/L (98-108); Creatinine (POC) 2.3 mg/dL (0.8-1.3); Glucose (ISTAT POC) 137 mg/dL (70-99); Hemoglobin (POC) 8.8 g/dL (13.5-17.5); Potassium (POC) 3.9 mmol/L (3.5-5.5); Sodium (POC) 135 mmol/L (135-148); Total CO2 (POC) 38 mmol/L (21-32)
[2023-02-12 18:22] VITALS: BP 112/50
== END 2023-02-12 18:23 | disposition home or self-care (01) ==
LOC: ER 12:49
PROVIDERS: Emergency Medicine; Physician Assistant
DX: K92.2 Gastrointestinal hemorrhage, unspecified (principal); E86.0 Dehydration; E87.6 Hypokalemia; I50.9 Heart failure, unspecified; F17.200 Nicotine dependence, unspecified, uncomplicated; Z91.040 Latex allergy status; Z79.899 Other long term (current) drug therapy
CPT/HCPCS: 80047; 80053; 82272; 85014; 85025; 86850; 86900; 86901; 93005; 93010; 96365; 96366; 96375; 99285-25; C9113; J3480; J7030; J7050

== ENCOUNTER → 2023-02-22 | Outpatient (CLI) | payer OTHER ==
[2023-02-22 15:19] LABS: Stool Occult Bld Immuno 1 Positive (NEGATIVE)
== END ==
LOC: LAB SHORT 08:12 → LAB 08:12
PROVIDERS: Family Medicine
DX: D50.0 Iron deficiency anemia secondary to blood loss (chronic) (principal); R19.5 Other fecal abnormalities
CPT/HCPCS: G0328

== ENCOUNTER 2024-06-15 17:44 | Inpatient (IN) | payer OTHER ==
[~2024-06-15] VITALS: Ht 180.3 cm; Wt 110.2 kg
[~2024-06-15 17:44] MED LIST changes: +BASAGLAR K100 UNIT/1 SC; +CEFP200 PO; +DOXY100 PO; +GUAI600T33 PO; +HUMALOG JU100 UNIT/2 SC; +IPRAT-ALBUT 0.5-3 ML INH; +METO5 PO; +MICONAZOLE NITR85 GM TOP; +Prednisone10 MG PO; -TRELEGY ELLIPT1 EAC1 IH; +TRELEGY ELLIPT1 EAC1 INH; +VISBIOME 112.51 EACH PO
[2024-06-15 18:15] LABS: BASOPHILS ABSOLUTE AUTO 0.02 K/mm3 (0.00-0.23); BASOPHILS PERCENT AUTO 0 % (0-2); EOSINOPHILS PERCENT AUTO 0 % (0-6); Hematocrit 39.4 % (37.0-53.0); Hemoglobin 12.7 g/dL (13.5-17.5); IMMATURE GRAN ABSOLUTE AUTO 0.09 K/mm3 (0.00-0.10); IMMATURE GRAN PERCENT AUTO 1 % (0-1); LYMPHOCYTES ABSOLUTE AUTO 0.69 K/mm3 (0.84-5.20); LYMPHOCYTES PERCENT AUTO 4 % (21-46); MONOCYTES ABSOLUTE AUTO 0.43 K/mm3 (0.16-1.47); MONOCYTES PERCENT AUTO 3 % (4-13); Mean Corpuscular HGB Conc 32.2 g/dL (31.5-36.5); Mean Corpuscular Volume 90 fL (80-100); Mean Platelet Volume 8.9 fL (9.1-12.4); NEUTROPHILS ABSOLUTE AUTO 14.47 K/mm3 (1.96-9.15); NEUTROPHILS PERCENT AUTO 92 % (41-73); Platelet Count 243 K/mm3 (150-400); RDW Coefficient Variation 13.7 % (11.7-14.2); RDW Standard Deviation 44.3 fL (35.1-46.3); Red Blood Cell Count 4.38 M/mm3 (4.30-5.90)
[2024-06-15 18:37] LABS: Albumin, Blood 3.5 g/dL (3.4-5.0); Albumin/Globulin Ratio 0.9 (0.8-1.8); Bilirubin, Total 0.8 mg/dL (0.1-1.0); Bun/Creatinine Ratio 37.2 (12.0-20.0); Calcium, Blood 8.8 mg/dL (8.5-10.1); Creatinine, Blood 1.45 mg/dL (0.60-1.20); Globulin, Blood 3.8 g/dL (2.2-4.0); Potassium, Blood 4.2 mmol/L (3.5-5.5); Total Protein, Blood 7.3 g/dL (6.4-8.2)
[2024-06-15] MEDS ORDERED: VISBIOME 112.51 EACH PO (19:01)
[2024-06-16] VITALS (7 sets, daily range): BP systolic 113–129; BP diastolic 56–94
[2024-06-16] MEDS ORDERED: NS 500 ML IV SCH (04:30)
--- NOTE | 2024-06-16 04:43 | NUR ---
SHIFT SUMMARY PATIENT IS ALERT AND ORIENTED. PATIENT HAS HAD NO ACUTE EVENTS THIS SHIFT. PATIENT IS A RECENT ADMIT. PATIENT HAS BEEN RESTING COMFORTABLY ALL SHIFT. PATIENT HAS NO COMPLAINTS OF PAIN, NAUSEA, SOB OR VOMITTING THIS SHIFT. BED IN LOCKED AND LOWEST POSITION. CALL LIGHT IN PLACE.
--- NOTE | 2024-06-16 06:26 | NUR ---
SPOKE WITH EARLIER IN SHIFT. AWAITING HOME MED RECONCILATION.
[2024-06-16] MEDS ORDERED: Ipratropium/Albuterol SulF 2.5-0.5MG/3 ML Amp INH SCH (07:50)
[2024-06-16] MEDS ORDERED: Albuterol 2.5 MG/3 ML VIAL INH PRN (07:55)
[2024-06-16] MEDS ORDERED: Mometasone/Formoterol MDI 200/5 mcg 13 GM INH SCH (08:00)
[2024-06-16 08:04] LABS: Hematocrit 38.7 % (37.0-53.0); Hemoglobin 12.3 g/dL (13.5-17.5); Mean Corpuscular HGB 28.9 pg (26.0-34.0); Mean Corpuscular HGB Conc 31.8 g/dL (31.5-36.5); Mean Corpuscular Volume 91 fL (80-100); Mean Platelet Volume 8.5 fL (9.1-12.4); Platelet Count 223 K/mm3 (150-400); RDW Coefficient Variation 13.7 % (11.7-14.2); Red Blood Cell Count 4.26 M/mm3 (4.30-5.90)
[2024-06-16 08:23] LABS: Bun/Creatinine Ratio 35.2 (12.0-20.0); Calcium, Blood 8.7 mg/dL (8.5-10.1); Creatinine, Blood 1.25 mg/dL (0.60-1.20); Potassium, Blood 3.5 mmol/L (3.5-5.5)
[2024-06-16] MEDS ORDERED: Pantoprazole Sodium 40 MG Tab PO SCH (09:00)
[2024-06-16] MEDS ORDERED: Doxycycline Hyclate 100 MG TAB PO SCH (09:00)
[2024-06-16] MEDS ORDERED: Atorvastatin 10 MG Tab PO SCH (09:00)
[2024-06-16] MEDS ORDERED: PredniSONE 20 MG Tab PO SCH (09:00)
[2024-06-16] MEDS ORDERED: CefTRIAXone Sodium 1,000 MG in NS 100 ML IV SCH (09:00)
[2024-06-16] MEDS ORDERED: Lactobacil 2-S.Thermo-Bifido 1 1 Cap PO SCH (09:00)
[2024-06-16] MEDS ORDERED: Miconazole Nitrate 2% 85 GM PWD TOP SCH (09:00)
[2024-06-16] MEDS ORDERED: Insulin Glargine-Yfgn 100 Unit/mL 3 ML SYR SC SCH (09:00)
[2024-06-16] MEDS ORDERED: Multivitamins/Minerals TAB PO SCH (09:00)
[2024-06-16] MEDS ORDERED: Insulin Human Lispro 100 Units/ML 3ML Syringe SC SCH (11:30)
--- NOTE | 2024-06-16 18:09 | NUR ---
SHIFT SUMMARY PATIENT ALERT AND INTERACTIVE BUT VERY HARD OF HEARING. PATIENT HAS HEARING AIDS BUT DO NOT HELP MUCH. PATIENT ABLE TO DO SOME MOBILIZING WITH WALKER AND STAND BY ASSIST. PATIENT EASILY TIRES. FAMILY IN TO VISIT. VERBALIZING FRUSTRATION THAT PATIENT DOES NOT USE HIS NEBULIZER MUCH HE SHOULD AND DOES NOT ALWAYS WEAR HIS OXYGEN. PATIENT HAD SYNCOPAL EPISODE AT HOME. CONCERNED THAT PATIENT MAY HAVE BEEN HYPOXIC DURING EPISODE. FAMILY ALSO STATE THAT PATIENT WILL EAT BEFORE FAMILY ARE ABLE TO CHECK HIS BLOOD SUGAR AND DOES NOT ADHERE TO A DIABETIC DIET. PATIENT AND FAMILY REQUESTING TO GO TO REHAB FOR STRENGTHENING
[2024-06-16] MEDS ORDERED: QUEtiapine Fumarate 25 MG Tab PO SCH (21:00)
[2024-06-17 03:10] VITALS: BP 125/66
--- NOTE | 2024-06-17 06:00 | NUR ---
SHIFT SUMMARY PT SLEPT INTERMITTENTLY DURING THE NIGHT. DENIES PAIN, AND DENIES FEELING DIZZY OR LIGHTHEADED. 3L NC MAINTAINED WITH O2 SATS WNL. CHRONIC CARRILLO DRAINING YELLOW URINE. BED IN LOWEST POSITION, CALL LIGHT WITHIN REACH, SIDERAILS UP X2.
--- NOTE | 2024-06-17 07:36 | NUR ---
ASSUMPTION OF CARE: ASSUMED CARE OF PATIENT. AWAKE DURING SHIFT CHANGE REPORT. LYING IN BED ON LEFT SIDE, FACING WALL. 3LPM/NC. NEBULIZER MASK PUSHED UP TO FOREHEAD AND STILL RUNNING. 3LPM/NC. CARRILLO PATENT AND DRAINING YELLOW URINE TO GRAVITY. HARD OF HEARING; HEARING AIDS ON DESKTOP PUBLISHER AT BEDSIDE. BED IN LOWEST POSITION. CALL LIGHT WITHIN REACH. NO ACUTE NEEDS.
[2024-06-17 07:38] VITALS: BP 108/56
[2024-06-17 07:42] VITALS: BP 125/72
[2024-06-17 07:44] VITALS: BP 127/64
[2024-06-17 15:10] VITALS: BP 133/79
--- NOTE | 2024-06-17 19:13 | NUR ---
END OF SHIFT SUMMARY: A&Ox4. PLEASANT AND COOPERATIVE WITH CARE. CALLS APPROPRIATELY AND IS ABLE TO ADVOCATE NEEDS EFFECTIVELY. CONTINENT OF BOWEL. CHRONIC CARRILLO FOR CHRONIC RETENTION; LAST CHANGED BY HOME HEALTH TWO DAYS AGO. AMBULATES 1PA c FWW. LBM TODAY. MEDICATED x1 PRN APAP FOR C/O LEFT KNEE PAIN; CHRONIC PAIN R/T OA, BUT WORSE AFTER MOST RECENT FALL AT HOME. WORKED WITH PT/OT TODAY. BED IN LOWEST POSITION, CALL LIGHT WITHIN REACH, ALL NEEDS MET. REPORT TO ONCOMING NURSE.
[2024-06-17 19:26] VITALS: BP 116/76
[2024-06-18] VITALS (7 sets, daily range): BP systolic 110–137; BP diastolic 56–74
[2024-06-18 05:40] LABS: Bun/Creatinine Ratio 27.3 (12.0-20.0); Calcium, Blood 8.5 mg/dL (8.5-10.1); Creatinine, Blood 1.28 mg/dL (0.60-1.20); Potassium, Blood 3.7 mmol/L (3.5-5.5)
--- NOTE | 2024-06-18 06:30 | NUR ---
SUMMARY: PT A/OX4, CALLS APPROPRIATELY TO SPECIFY NEEDS AND IS PLEASANT AND COOPERATIVE W/CARE. HE'S UP W/1PA AND FWW AND HAS CHRONIC CARRILLO PATENT AND INTACT FOR RETENTION. PT REMAINS ON 3L O2 VIA NC W/SPO2 WNL AND CRACKLES PERSIST T/O BILAT LUNG LOBES. NO ACUTE CHANGES, VSS/AFEBRILE. WILL REPORT TO DAY RN.
--- NOTE | 2024-06-18 10:32 | NUR ---
ASSUMED CARE OF PATIENT. AWAKE DURING SHIFT CHANGE; HEARING AIDS NOT IN AND UNABLE TO PARTICIPATE IN REPORT. CARRILLO PATENT AND DRAINING YELLOW URINE TO GRAVITY. NO ACUTE NEEDS. O2 @ 3LPM/NC.
[2024-06-18] MEDS ORDERED: Prednisone10 MG PO (12:01)
[2024-06-18] MEDS ORDERED: Acetaminophen 500 MG Tab PO PRN (17:00)
--- NOTE | 2024-06-18 19:30 | NUR ---
END OF SHIFT SUMMARY: A&Ox4. PLEASANT AND COOPERATIVE WITH CARE. CALLS APPROPRIATELY AND IS ABLE TO ADVOCATE NEEDS EFFECTIVELY. CONTINENT OF BOWEL. CHRONIC CARRILLO FOR CHRONIC RETENTION; LAST CHANGED BY HOME HEALTH THREE DAYS AGO. AMBULATES 1PA c FWW. LBM TODAY. XR KNEES DONE TODAY. WAS SLATED FOR DISCHARGE TO SNF BUT TRANSPORTATION PREVENTED DISCHARGE TODAY. ANTICIPATE DC TOMORROW. BED IN LOWEST POSITION, CALL LIGHT WITHIN REACH, ALL NEEDS MET. REPORT TO ONCOMING NURSE.
[2024-06-19 03:13] VITALS: BP 125/57
[2024-06-19 05:45] LABS: Calcium, Blood 8.3 mg/dL (8.5-10.1); Creatinine, Blood 1.25 mg/dL (0.60-1.20); Potassium, Blood 3.8 mmol/L (3.5-5.5)
[2024-06-19 07:08] VITALS: BP 130/61
--- NOTE | 2024-06-19 07:09 | NUR ---
SHIFT SUMMARY PT IS ADMITTED FOR MULTIPLE SYNCOPE EPISODES SECONDARY TO COPD EXACERBATION. PT IS ALERT AND ORIENTED TIMES 4. PT IS BASELINE 3-4 L O2. PT IS CURRENT SMOKER. WITH HX OF CKD STG3, HF, AFIB. PT NOT ON BLOOD THINNER DUE TO GI BLEED. PT USES FORWARD WALKER. PT HAS CARRILLO CHRONIC AND LATEX ALEGERGY. MEDS GIVEN WHOLE WITH WATER. HEART HEALTHY DIET HC/AC CGB. BED IN LOW POSITION, CALL LIGHT WITHIN REACH, RAILS TIMES 2.
[2024-06-19] MEDS ORDERED: GLIP5ER PO (14:12)
[2024-06-19 15:21] VITALS: BP 123/73
--- NOTE | 2024-06-19 18:43 | NUR ---
SHIFT SUMMARY PT A&OX4, VSS, ON 2L O2, AMB W/ ASSIST, TOLERATING PO, VOIDING, AND DENIED PAIN. CALL LIGHT WITHIN REACH AND PT ABLE TO MAKE NEEDS KNOWN.
[2024-06-19 19:13] VITALS: BP 145/93
[2024-06-19] MEDS ORDERED: Acetaminophen 500 MG Tab PO SCH (21:00)
[2024-06-20 03:52] VITALS: BP 126/70
--- NOTE | 2024-06-20 04:54 | NUR ---
SHIFT SUMMARY PT IS ADMITTED FOR MULTIPLE SYNCOPE EPISODES SECONDARY TO COPD EXACERBATION. PT IS ALERT AND ORIENTED TIMES 3-4. PT IS BASELINE 3-4 L O2, CURRENTLY ON 2L O2. PT IS CURRENT SMOKER. WITH HX OF CKD STG3, HF, AFIB. PT NOT ON BLOOD THINNER DUE TO GI BLEED. PT USES FORWARD WALKER. PT HAS CARRILLO CHRONIC AND LATEX ALEGERGY. MEDS GIVEN WHOLE WITH WATER. HEART HEALTHY DIET HC/AC CGB. PT HAD SEVERAL EPISODES OF YELLING OUT UNCOMPREHENDABLE PHRASES. WHEN STAFF WOULD GO TO CHECK , PT APPEARED TO BE SLEEPING. BED IN LOW POSITION, CALL LIGHT WITHIN REACH, RAILS TIMES 2.
[2024-06-20 07:25] VITALS: BP 155/73
[2024-06-20] MEDS ORDERED: PredniSONE 10 MG Tab PO SCH (09:00)
--- NOTE | 2024-06-20 14:15 | NUR ---
DISCHARGE NOTE PT D/C TO [facility] AT 1400. PT A&OX4, VSS, AMB W/ ASSIST, TOLERATING PO, VOIDING, AND DENIED PAIN. CHRONIC CARRILLO REMAINED IN PLACE. BELONGINGS WERE RETURNED. HEARING AID AND PHONE WIRE PREPARATION WORKER PLACED IN BELONGINGS BAG. THIS RN CALLED [facility] AND GAVE REPORT TO ALISSA RODRIGUEZ. PT ESCOURTED OUT VIA W/C BY TRANSPORT.
== END 2024-06-20 13:55 | DRG 281 ==
LOC: ER 17:44 → MEDS 06-16 00:10 → ENPENDDIS 06-20 12:27 → MEDS 06-20 13:55
PROVIDERS: Emergency Medicine; Internal Medicine; ADMIT Internal Medicine
DX: I95.1 Orthostatic hypotension (principal); I48.20 Chronic atrial fibrillation, unspecified; I21.A1 Myocardial infarction type 2; T83.511A Infection and inflammatory reaction due to indwelling urethral catheter, initial encounter; N39.0 Urinary tract infection, site not specified; J84.9 Interstitial pulmonary disease, unspecified; J96.11 Chronic respiratory failure with hypoxia; I50.32 Chronic diastolic (congestive) heart failure; J44.0 Chronic obstructive pulmonary disease with (acute) lower respiratory infection; J44.9 Chronic obstructive pulmonary disease, unspecified; I27.20 Pulmonary hypertension, unspecified; B96.1 Klebsiella pneumoniae [K. pneumoniae] as the cause of diseases classified elsewhere; I08.2 Rheumatic disorders of both aortic and tricuspid valves; M25.562 Pain in left knee; E11.22 Type 2 diabetes mellitus with diabetic chronic kidney disease; R22.42 Localized swelling, mass and lump, left lower limb; J40 Bronchitis, not specified as acute or chronic; N18.30 Chronic kidney disease, stage 3 unspecified; D64.9 Anemia, unspecified; E11.65 Type 2 diabetes mellitus with hyperglycemia; F17.290 Nicotine dependence, other tobacco product, uncomplicated; Z91.040 Latex allergy status; Z91.81 History of falling; Z79.4 Long term (current) use of insulin; Z99.81 Dependence on supplemental oxygen; Z79.51 Long term (current) use of inhaled steroids; Z79.52 Long term (current) use of systemic steroids
CPT/HCPCS: 36415; 70450; 73562-LT; 80048; 80053; 82947; 83880; 84443; 84484; 85025; 85027; 93005; 93010; 94640; 94664; 94760; 97110; 97116; 97116-CQ; 97162; 97165; 97530; 97530-CQ; 97535; 99285-25; A9270; J0696; J1815; J7040; J7512

== ENCOUNTER → 2024-08-27 | Outpatient (CLI) | payer OTHER ==
[~2024-08-27] MED LIST changes: +GLIP5ER PO
== END ==
LOC: LAB 14:32 → LAB SHORT 14:32
DX: N39.0 Urinary tract infection, site not specified (principal)
CPT/HCPCS: 87077; 87086; 87186